=== PATIENT | female | born 1955 | race Caucasian/White ===

== ENCOUNTER → 2018-05-17 11:06 | Outpatient (CLI) | payer OTHER, MEDICAID, SELFPAY ==
--- NOTE | 2018-05-17 | DI.CT.S_ITS ---
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 5 mm coronal and sagittal reformats were performed, with additional 7 mm coronal MIP reformats through the lungs. For radiation dose reduction, the following was used: automated exposure control, adjustment of mA and/or kV according to patient size. COMPARISON: [facility], CT, CHEST/ABD/PEL WITH CONTRAST, 02/15/2013, 9:20. FINDINGS: Image quality: Excellent. CHEST: Lungs and pleura: No acute air space opacities. No pleural effusions or pneumothorax. Central and peripheral airways are patent and normal in caliber. Mediastinum: Heart size is normal. No pericardial effusion. No mediastinal or hilar adenopathy by size criteria. Thoracic aorta and central pulmonary arteries are normal in size. Esophagus is normal in caliber. No hiatal hernia. Chest wall: No axillary or supraclavicular adenopathy by size criteria. Thyroid gland appears normal except for a punctate calcification at the left thyroid lobe (series 2 image 11) without associated identifiable mass.. ABDOMEN: Solid organs: Liver is normal in size and enhancement. Gallbladder is absent, and the pattern of surgical clips at the gallbladder fossa and the pancreatic head area immediately adjacent is unchanged from 02/15/13. Biliary system is nondilated. Pancreas enhances normally. Spleen is normal in size and enhancement. No adrenal nodules. Kidneys are normal in size and enhancement, without hydronephrosis. Peritoneum and bowel: Bowel loops demonstrate normal wall thickness and caliber. No free fluid or air. Nodes and vessels: No retroperitoneal or mesenteric adenopathy by size criteria. Aorta and inferior vena cava are normal in caliber. Bones: No suspicious bony lesions. No vertebral body compression fractures. There is a mild convex leftward scoliosis centered at the L1 level of the lumbosacral spine. No underlying epidural or paravertebral mass is found. Miscellaneous: No ventral hernias. IMPRESSION: Stable postsurgical changes of cholecystectomy and presumed additional surgical procedure at the pancreatic head area, with reference to the pattern of surgical clips 02/15/[address] scanning from that time (no change). No evidence of recurrent mass lesion at the pancreatic head area, no pancreatic or biliary dilatation is found. Through the abdomen and pelvis visualized no adenopathy is seen. Through the spine visualized there is no evidence of metastatic disease. Dictated by: Edvin Rosenberg M.D. on 05/17/2018 at 12:50 Approved by: Edvin Rosenberg M.D. on 05/17/2018 at 13:11
--- NOTE | 2018-05-17 | DI.MRI.S_ITS ---
PROCEDURE: MR HEAD/BRAIN WO/W CON INDICATIONS: A 63 year-old woman with history of carcinoma of ampulla Vater and non-Hodgkin's lymphoma. The patient presents with upper and lower extremity numbness. TECHNIQUE: Noncontrast axial T1 spin echo, axial T2 fast spin echo, sagittal and axial FLAIR, coronal T2 fast spin echo, axial gradient echo, axial diffusion and ADC through the brain. After the administration of contrast, axial and coronal T1 spin echo with fat saturation through the brain. COMPARISON: [facility], CT, ABDOMEN/PELVIS WITH CONTRAST, 06/14/2011, 14:39. [facility], MR, BRAIN WITH AND WITHOUT CONTRAS, 05/20/2008, 16:11. FINDINGS: Image quality: Excellent. CSF spaces: Basal cisterns are patent. No extra-axial fluid collections. Ventricles are normal in size and shape. Brain: No midline shift. No intracranial bleeds or masses. No abnormal intracranial enhancement. There is mild cerebral volume loss for age. There are a few foci of T2 hyperintensity in the periventricular white matter chronic small vessel ischemic change. The brainstem appears normal. Diffusion-weighted images demonstrate no acute ischemic insults. No chronic ischemic insults. Normal intravascular flow voids are present. Skull and face: Calvarial marrow is normal in signal. Orbits appear normal. Sinuses: Sinuses and mastoids appear clear. IMPRESSION: 1. No acute intracranial abnormalities. No evidence for metastatic disease. 2. Mild cerebral volume loss. 3. A few foci of nonspecific T2 hyperintensity in the periventricular and subcortical matter, most likely secondary to chronic microvascular ischemic change. Dictated by: Devan Zee M.D. on 05/17/2018 at 14:55 Approved by: Devan Zee M.D. on 05/17/2018 at 15:07
== END ==
PROVIDERS: PCP Internal Medicine; Visit Provider Internal Medicine
DX: C24.1 Malignant neoplasm of ampulla of Vater (principal); C85.90 Non-Hodgkin lymphoma, unspecified, unspecified site; R20.0 Anesthesia of skin; Z90.49 Acquired absence of other specified parts of digestive tract
CPT/HCPCS: 70553; 71260; 74160; A9579; Q9967

== ENCOUNTER → 2018-06-18 16:53 | Outpatient (CLI) | payer OTHER, MEDICAID, SELFPAY ==
--- NOTE | 2018-06-18 16:55 | DI.MRI.S_ITS ---
PROCEDURE: MR THORACIC SPINE WO CON INDICATIONS: LOW BACK PAIN TECHNIQUE: Noncontrast sagittal T1 spine echo and T2 fast spin echo, sagittal STIR, axial T1 and T2 fast spin echo through the thoracic spine. COMPARISON: None. FINDINGS: Image quality: Limited by patient motion artifact. Alignment and Curvature: There is normal bony alignment of the thoracic spine. Bone Marrow: Mild reactive endplate changes noted adjacent to the T7-T8, T8-T9 and T9-T10 discs. Benign, intraosseous hemangiomas noted in the T8 and T10 vertebral bodies. No acute vertebral body compression fractures. Spinal Cord: Visualized spinal cord is normal in size and signal. Paraspinous Soft Tissues: No paravertebral masses. Miscellaneous: Loss of signal noted in the T4 and T5, T5-T6, T6-T7, T7-T8, T8-T9, T9-T10 and T11-T12 discs. Slight loss of disc height noted in the T7-T8, T8-T9, T9-T10 and T11-T12 disc. Small central T7-T8 disc protrusion noted. Mild, diffuse T5 T6, T6-T7, TE 8-T9 and T11-T12 disc bulge. No central stenosis. No neural foraminal narrowing. No neural impingement. IMPRESSION: 1. Mild to moderate multilevel degenerative disc disease. 2. No central stenosis. 3. No neural foraminal narrowing. 4. No neural impingement. Dictated by: Marquita Solis MD, PhD on 06/19/2018 at 9:56 Approved by: Marquita Solis MD, PhD on 06/19/2018 at 10:19
--- NOTE | 2018-06-18 16:55 | DI.MRI.S_ITS ---
PROCEDURE: MR CERVICAL SPINE WO CON INDICATIONS: LOW BACK PAIN TECHNIQUE: Noncontrast sagittal T1 spin echo and T2 fast spin echo, sagittal STIR, foraminal oblique sagittal T2 fast spin echo, and axial gradient echo or T2 fast spin echo through the cervical spine. COMPARISON: [facility], CT, C-SPINE WITHOUT CONTRAST, 02/28/2010, 16:45. FINDINGS: Image quality: Excellent. Alignment and Curvature: There is mild L3-L4, trace L4-L5 and trace C7-T1 anterolisthesis secondary to facet hypertrophy. There is straightening normal apical spine curvature. Bone Marrow: Reactive endplate change is noted adjacent to the C3-C4, C5-C6 and C6-C7 discs. Spinal Cord: Visualized spinal cord has normal size. Slightly increased T2 signal noted in the cervical spinal cord the level of the C3-C4 disc compatible with cord edema. No cerebellar tonsillar herniation. Paraspinous Soft Tissues: No paravertebral masses. Prevertebral soft tissues are normal in thickness. C2-C3: Loss of the signal. Mild diffuse disc bulge. Moderate right facet hypertrophy. Moderate right uncovertebral joint hypertrophy. Mild narrowing of the central canal. Severe right neural foraminal narrowing with flattening deformity of the exiting right C3 nerve root. Left neural foramen is fully patent. C3-C4: Loss of disc signal. Moderate, diffuse disc bulge. Moderate bilateral facet hypertrophy. Moderate right and mild left uncovertebral joint hypertrophy. Mild ligamentum flavum hypertrophy. Severe central stenosis with flattening deformity of the cervical spinal cord. Severe bilateral neural foraminal narrowing with flattening deformity exiting C4 nerve roots. C4-C5: Loss of disc signal and slight loss of disc height. Mild, diffuse disc bulge. Moderate bilateral facet hypertrophy. Mild bilateral uncovertebral joint hypertrophy. Mild narrowing of the central canal. Moderate bilateral neural foraminal narrowing. No neural impingement. C5-C6: Loss of disc signal and height. Moderate, diffuse disc bulge. Mild bilateral facet hypertrophy. Moderate bilateral uncovertebral joint hypertrophy. Moderate narrowing of the central canal. Severe bilateral neural foraminal narrowing with flattening deformity of the exiting C6 nerve roots. C6-C7: Loss of disc signal and height. Moderate, diffuse disc bulge. Mild bilateral facet hypertrophy. Mild bilateral uncovertebral joint hypertrophy. Moderate narrowing of the central canal. Moderate bilateral neural foraminal narrowing. No neural impingement. C7-T1: Loss of disc signal. Mild, diffuse disc bulge. Mild bilateral facet hypertrophy. No central stenosis. No neural foraminal narrowing. No neural impingement. IMPRESSION: 1. Multilevel degenerative disc disease. 2. Multilevel facet arthropathy and uncovertebral joint hypertrophy. 3. Severe C3-C4 central canal stenosis with marked flattened deformity of the cervical spinal cord and associated mild spinal cord edema. 4. Moderate C5-C6 and C6-C7 central canal narrowing. Mild C2-C3 and C4-C5 central canal narrowing. 5. Severe bilateral C3-C4 and C5-C6 neural foraminal narrowing. Severe right C2-C3 neural foraminal narrowing. Moderate bilateral C4-C5 and C6-C7 neural foraminal narrowing. 6. Flattened deformity of the exiting right C2 nerve root, the exiting bilateral C4 nerve roots and the exiting bilateral C6 nerve root secondary to neural foraminal narrowing. Dictated by: Marquita Solis MD, PhD on 06/19/2018 at 9:27 Approved by: Marquita Solis MD, PhD on 06/19/2018 at 9:51
== END ==
PROVIDERS: PCP Internal Medicine; Visit Provider Internal Medicine
DX: M50.31 Other cervical disc degeneration, high cervical region (principal); M51.34 Other intervertebral disc degeneration, thoracic region; M47.812 Spondylosis without myelopathy or radiculopathy, cervical region; M54.5 Low back pain; M48.02 Spinal stenosis, cervical region
CPT/HCPCS: 72141; 72146

== ENCOUNTER → 2020-06-22 20:37 | Outpatient (ROUT) | payer SELFPAY ==
[2020-06-22 21:21] LABS: Add Manual Diff / Slide Review NO; Basophils Absolute Auto 0 /uL (0-100); Basophils Percent Auto 0.4 % (0-2); Eosinophils Absolute Auto 100 /uL (0-450); Eosinophils Percent Auto 1.6 % (2-4); Hematocrit 43.9 % (36-46); Hemoglobin 14.8 g/dL (12.0-16.0); Lymphocytes Absolute Auto 1400 /uL (1100-4500); Lymphocytes Percent Auto 20.3 % (25-40); Mean Corpuscular HGB Conc 33.8 % (30-36); Mean Corpuscular Hemoglobin 31.4 PG (26-34); Monocytes Absolute Auto 300 /uL (0-900); Monocytes Percent Auto 5.2 % (3-14); Neutrophils Absolute Auto 4800 /uL (1500-7000); Neutrophils Percent Auto 72.5 % (50-75); Platelet Count 220 X10^3/uL (150-400); Red Blood Cell Count 4.72 X10^6/uL (4.0-5.2); Red Cell Distribution Width 14.4 % (11.6-14.8); White Blood Cell Count 6.7 X10^3/uL (4.5-11.0)
[2020-06-22 22:06] LABS: Alanine Aminotransferase 38 IU/L (<35); Albumin 4.4 g/dL (3.5-5.0); Albumin Globulin Ratio 1.6 (1.0-2.8); Alkaline Phosphatase 185 U/L (38-126); Aspartate Aminotransferase 63 IU/L (14-36); Blood Urea Nitrogen 13 mg/dL (7-17); Calcium 9.6 mg/dL (8.4-10.2); Carbon Dioxide 27 mmol/L (22-32); Chloride 105 mmol/L (98-107); Cholesterol 168 mg/dL (140-199); Estimated Glomerular Filt Rate > 60.0 mL/min (>60); Globulin 2.8 g/dL (1.7-4.1); Glucose 129 mg/dL (80-110); HDL Cholesterol 78 mg/dL (40-60); HEMOLYSIS < 15 (0-50); LDL Cholesterol Calculated 68 mg/dL (<100); Potassium 4.1 mmol/L (3.4-5.1); Sodium 139 mmol/L (137-145); Total Protein 7.2 g/dL (6.3-8.2); Triglycerides 110 mg/dL (35-150)
[2020-06-22 23:45] LABS: Lactate Dehydrogenase 529 U/L (313-618)
[2020-06-25 09:45] LABS: Immunoglobulin A, Serum 47 mg/dL (87-352); Immunoglobulin G,Serum 899 mg/dL (586-1602); Immunoglobulin M, Serum 27 mg/dL (26-217)
[2020-07-07 15:43] LABS: IGA 47; IGG 899
[2020-07-07 15:44] LABS: IGM 27
== END ==
PROVIDERS: PCP Internal Medicine; Visit Provider Internal Medicine
DX: C24.1 Malignant neoplasm of ampulla of Vater (principal); D47.2 Monoclonal gammopathy
CPT/HCPCS: 80053; 80061; 82784; 83615; 84155; 85025; 86334; 86335

== ENCOUNTER → 2022-03-31 09:22 | Outpatient (CLI) | payer MEDICARE, SELFPAY ==
[2022-03-31 11:30] LABS: Add Manual Diff / Slide Review NO; Basophils Absolute Auto 0 /uL (0-100); Basophils Percent Auto 0.4 % (0-2); Eosinophils Absolute Auto 100 /uL (0-450); Eosinophils Percent Auto 1.8 % (2-4); Hematocrit 44.9 % (36-46); Hemoglobin 15.4 g/dL (12.0-16.0); Lymphocytes Absolute Auto 1600 /uL (1100-4500); Lymphocytes Percent Auto 24.3 % (25-40); Mean Corpuscular HGB Conc 34.3 % (30-36); Mean Corpuscular Hemoglobin 33.7 PG (26-34); Mean Corpuscular Volume 98.4 fL (80-100); Monocytes Absolute Auto 400 /uL (0-900); Monocytes Percent Auto 6.6 % (3-14); Neutrophils Absolute Auto 4400 /uL (1500-7000); Neutrophils Percent Auto 66.9 % (50-75); Platelet Count 297 X10^3/uL (150-400); Red Blood Cell Count 4.57 X10^6/uL (4.0-5.2); Red Cell Distribution Width 13.3 % (11.6-14.8); White Blood Cell Count 6.5 X10^3/uL (4.5-11.0)
[2022-03-31 12:51] LABS: Alanine Aminotransferase 51 IU/L (<35); Albumin 4.5 g/dL (3.5-5.0); Albumin Globulin Ratio 1.5 (1.0-2.8); Alkaline Phosphatase 144 U/L (38-126); Aspartate Aminotransferase 53 IU/L (14-36); BUN Creatinine Ratio 15.1 (6-22); Bilirubin Total 1.1 mg/dL (0.2-1.3); Blood Urea Nitrogen 11 mg/dL (7-17); Calcium 9.7 mg/dL (8.4-10.2); Carbon Dioxide 25 mmol/L (22-32); Chloride 104 mmol/L (98-107); Cholesterol 169 mg/dL (140-199); Estimated Glomerular Filt Rate > 60 mL/min (>60); Glucose 111 mg/dL (80-110); HDL Cholesterol 57 mg/dL (40-60); HEMOLYSIS < 15 (0-50); LDL Cholesterol Calculated 92 mg/dL (<100); Lactate Dehydrogenase 408 U/L (313-618); Sodium 138 mmol/L (137-145); Total Protein 7.5 g/dL (6.3-8.2); Triglycerides 102 mg/dL (35-150)
[2022-03-31 13:18] LABS: Thyroid Stimulating Hormone 1.24 uIU/mL (0.47-4.68)
== END ==
PROVIDERS: PCP Internal Medicine; Referring Provider Internal Medicine; Visit Provider Internal Medicine
DX: C85.90 Non-Hodgkin lymphoma, unspecified, unspecified site (principal); E78.2 Mixed hyperlipidemia
CPT/HCPCS: 36415; 80053; 80061; 83615; 84443; 85025

== ENCOUNTER → 2022-04-13 14:12 | Outpatient (CLI) | payer MEDICARE, SELFPAY ==
[2022-04-15 14:16] LABS: Albumin 3.8 g/dL (2.9-4.4); Alpha-1-Globulin 0.2 g/dL (0.0-0.4); Alpha-2-Globulin 0.7 g/dL (0.4-1.0); Gamma Globulin 1.1 g/dL (0.4-1.8); Globulin Total 2.9 g/dL (2.2-3.9); Protein, Total 6.7 g/dL (6.0-8.5)
== END ==
PROVIDERS: PCP Internal Medicine; Referring Provider Internal Medicine; Visit Provider Internal Medicine
DX: D47.2 Monoclonal gammopathy (principal)
CPT/HCPCS: 36415; 84155; 84165; 86335

== ENCOUNTER → 2022-08-04 14:00 | Outpatient (CLI) | payer MEDICARE, SELFPAY ==
--- NOTE | 2022-08-04 | DI.MG.S_ITS ---
BILATERAL DIGITAL SCREENING MAMMOGRAM 3D/2D WITH CAD: 08/04/2022 CLINICAL: Routine screening. Family history of breast cancer. Comparison is made to exams dated: 01/02/2019 mammogram, 10/06/2017 mammogram, 06/23/2014 mammogram, and 08/11/2016 mammogram - [facility]. Both breasts are heterogeneously dense, which may obscure small masses (category c / 51-75% glandular tissue). Current study was also evaluated with a Computer Aided Detection (CAD) system. There is a focal asymmetry in the left breast at 2 o'clock middle depth. No other significant masses, calcifications, or other findings are seen in either breast. IMPRESSION: INCOMPLETE: NEEDS ADDITIONAL IMAGING EVALUATION The focal asymmetry in the left breast is indeterminate. Additional views with possible ultrasound are recommended. Based on the Tyrer Cuzick model (a risk assessment model) the patient's lifetime risk is 13.0% and her 10 year risk is 7.3%. According to the ACR, ACS, and NCCN guidelines, an annual breast MRI exam along with mammogram is recommended if the patient's lifetime risk is 20% or greater. This exam was interpreted at Station ID: [id number]. NOTE: For mammograms, a report in lay terms will be sent to the patient. Approximately 15% of breast malignancies will not be visualized mammographically. In the management of a palpable breast mass, a negative mammogram must not discourage biopsy of a clinically suspicious lesion. Electronically Signed By: Timothy Farr M.D. [facility] [place]/:08/04/2022 17:58:50 letter sent: Additional Imaging Needed ACR BI-RADS Category 0: Incomplete [id number]
== END ==
PROVIDERS: PCP Internal Medicine; Referring Provider Internal Medicine; Visit Provider Internal Medicine
DX: Z13.820 Encounter for screening for osteoporosis (principal); Z12.31 Encounter for screening mammogram for malignant neoplasm of breast; Z80.3 Family history of malignant neoplasm of breast; Z78.0 Asymptomatic menopausal state; Z90.710 Acquired absence of both cervix and uterus
CPT/HCPCS: 77063; 77067; 77080

== ENCOUNTER → 2022-09-06 11:38 | Outpatient (CLI) | payer MEDICARE, SELFPAY ==
--- NOTE | 2022-09-06 11:42 | DI.MG.S_ITS ---
UNILATERAL LEFT DIGITAL DIAGNOSTIC MAMMOGRAM 3D/2D WITH ADDITIONAL VIEWS: 09/06/2022 CLINICAL: Additional evaluation requested from prior study. Comparison is made to exams dated: 08/04/2022 mammogram - [facility], 01/02/2019 mammogram, and 10/06/2017 mammogram - [facility]. The left breast is heterogeneously dense, which may obscure small masses (category c / 51-75% glandular tissue). The focal asymmetry in the left breast at 2 o'clock middle depth is no longer seen. No other significant masses or calcifications are seen in the breast. IMPRESSION: NEGATIVE There is no mammographic evidence of malignancy. Return to annual mammogram screening schedule is recommended. Based on the Tyrer Cuzick model (a risk assessment model) the patient's lifetime risk is 13.0% and her 10 year risk is 7.3%. According to the ACR, ACS, and NCCN guidelines, an annual breast MRI exam along with mammogram is recommended if the patient's lifetime risk is 20% or greater. This exam was interpreted at Station ID: [id number]. NOTE: For mammograms, a report in lay terms will be sent to the patient. Approximately 15% of breast malignancies will not be visualized mammographically. In the management of a palpable breast mass, a negative mammogram must not discourage biopsy of a clinically suspicious lesion. Electronically Signed By: Domingo gomez/kizzy:09/06/2022 12:20:42 letter sent: Normal Exam ACR BI-RADS Category 1: Negative [id number]
== END ==
PROVIDERS: PCP Internal Medicine; Referring Provider Internal Medicine; Visit Provider Internal Medicine
DX: R92.8 Other abnormal and inconclusive findings on diagnostic imaging of breast (principal)
CPT/HCPCS: 77065; G0279

== ENCOUNTER → 2022-11-03 11:50 | Outpatient (CLI) | payer MEDICARE, SELFPAY ==
[2022-11-03 12:31] LABS: Hematocrit 46.3 % (36-46); Hemoglobin 15.4 g/dL (12.0-16.0); Mean Corpuscular HGB Conc 33.2 % (30-36); Mean Corpuscular Hemoglobin 31.9 PG (26-34); Platelet Count 219 X10^3/uL (150-400); Red Blood Cell Count 4.82 X10^6/uL (4.0-5.2); Red Cell Distribution Width 15.2 % (11.6-14.8); White Blood Cell Count 6.3 X10^3/uL (4.5-11.0)
[2022-11-03 12:52] LABS: Alanine Aminotransferase 130 IU/L (<35); Albumin 4.7 g/dL (3.5-5.0); Albumin Globulin Ratio 1.3 (1.0-2.8); Alkaline Phosphatase 273 U/L (38-126); Aspartate Aminotransferase 156 IU/L (14-36); BUN Creatinine Ratio 23.8 (6-22); Bilirubin Total 1.6 mg/dL (0.2-1.3); Blood Urea Nitrogen 15 mg/dL (7-17); Calcium 9.7 mg/dL (8.4-10.2); Carbon Dioxide 27 mmol/L (22-32); Chloride 102 mmol/L (98-107); Estimated Glomerular Filt Rate > 60 mL/min (>60); Globulin 3.6 g/dL (1.7-4.1); Glucose 128 mg/dL (80-110); HEMOLYSIS 25 (0-50); Potassium 3.9 mmol/L (3.4-5.1); Sodium 140 mmol/L (137-145); Total Protein 8.3 g/dL (6.3-8.2)
[2022-11-03 13:33] LABS: TSH w/ Reflex to FT4 1.67 uIU/mL (0.47-4.68)
== END ==
PROVIDERS: PCP Internal Medicine; Referring Provider Internal Medicine; Visit Provider Internal Medicine
DX: E78.2 Mixed hyperlipidemia (principal); I10 Essential (primary) hypertension; K75.81 Nonalcoholic steatohepatitis (NASH)
CPT/HCPCS: 36415; 80053; 84443; 85027

== ENCOUNTER → 2022-11-16 08:01 | Outpatient (CLI) | payer MEDICARE, SELFPAY ==
--- NOTE | 2022-11-16 08:03 | DI.US.S_ITS ---
PROCEDURE: US ABDOMEN LIMITED INDICATIONS: Nonalcoholic steatohepatitis (GARCIA) TECHNIQUE: Real-time focused scanning was performed of the abdomen, with image documentation. COMPARISON: None. FINDINGS: Increased hepatic echogenicity. The liver measures 15 centimeters. Gallbladder is absent. The CBD measures 4 millimeters. Pancreas is within normal limits, where visualized. IMPRESSION: Increased hepatic echogenicity compatible with reported steatohepatitis. The gallbladder is absent Dictated by: Vince Lockhart M.D. on 11/16/2022 at 9:33 Approved by: Vince Lockhart M.D. on 11/16/2022 at 9:34
[2022-11-16 10:57] LABS: Alanine Aminotransferase 114 IU/L (<35); Albumin 4.7 g/dL (3.5-5.0); Albumin Globulin Ratio 1.5 (1.0-2.8); Alkaline Phosphatase 224 U/L (38-126); Aspartate Aminotransferase 103 IU/L (14-36); BUN Creatinine Ratio 19.8 (6-22); Bilirubin Total 1.6 mg/dL (0.2-1.3); Blood Urea Nitrogen 16 mg/dL (7-17); Calcium 9.7 mg/dL (8.4-10.2); Carbon Dioxide 32 mmol/L (22-32); Chloride 94 mmol/L (98-107); Estimated Glomerular Filt Rate > 60 mL/min (>60); Globulin 3.2 g/dL (1.7-4.1); Glucose 133 mg/dL (80-110); HEMOLYSIS < 15 (0-50); Lactate Dehydrogenase 178 U/L (120-246); Potassium 4.1 mmol/L (3.4-5.1); Sodium 138 mmol/L (137-145); Total Protein 7.9 g/dL (6.3-8.2)
[2022-11-17 07:47] LABS: HBsAg Screen Negative (Negative); Hepatitis A Antibody IgM Negative (Negative); Hepatitis B Core Antibody IgM Negative (Negative); Hepatitis C Antibody Non Reactive (Non Reactive)
[2022-11-19 18:07] LABS: ANA Screen, IFA Negative (.)
== END ==
PROVIDERS: PCP Internal Medicine; Referring Provider Internal Medicine; Visit Provider Internal Medicine
DX: K75.81 Nonalcoholic steatohepatitis (NASH) (principal); R79.89 Other specified abnormal findings of blood chemistry; Z85.79 Personal history of other malignant neoplasms of lymphoid, hematopoietic and related tissues; Z90.49 Acquired absence of other specified parts of digestive tract
CPT/HCPCS: 36415; 76705; 80053; 80074; 83615; 86038

== ENCOUNTER → 2022-12-15 12:13 | Outpatient (CLI) | payer MEDICARE, SELFPAY ==
[2022-12-15 13:30] LABS: Alanine Aminotransferase 144 IU/L (<35); Albumin 4.9 g/dL (3.5-5.0); Albumin Globulin Ratio 1.6 (1.0-2.8); Alkaline Phosphatase 231 U/L (38-126); Aspartate Aminotransferase 160 IU/L (14-36); Bilirubin Total 1.8 mg/dL (0.2-1.3); Blood Urea Nitrogen 18 mg/dL (7-17); Carbon Dioxide 26 mmol/L (22-32); Chloride 100 mmol/L (98-107); Estimated Glomerular Filt Rate > 60 mL/min (>60); Globulin 3.1 g/dL (1.7-4.1); Glucose 135 mg/dL (80-110); HEMOLYSIS < 15 (0-50); Potassium 4.3 mmol/L (3.4-5.1); Sodium 136 mmol/L (137-145)
[2022-12-16 06:10] LABS: Labcorp Hemoglobin (Hb) A1c 5.7 % (4.8-5.6)
== END ==
PROVIDERS: PCP Internal Medicine; Referring Provider Internal Medicine; Visit Provider Internal Medicine
DX: I10 Essential (primary) hypertension (principal); R79.89 Other specified abnormal findings of blood chemistry; R73.01 Impaired fasting glucose
CPT/HCPCS: 36415; 80053; 83036

== ENCOUNTER → 2023-03-22 16:00 | Outpatient (CLI) | payer MEDICARE, SELFPAY ==
[2023-03-22 17:41] LABS: Alanine Aminotransferase 46 IU/L (<35); Albumin 4.5 g/dL (3.5-5.0); Albumin Globulin Ratio 1.4 (1.0-2.8); Alkaline Phosphatase 174 U/L (38-126); Aspartate Aminotransferase 55 IU/L (14-36); BUN Creatinine Ratio 10.2 (6-22); Blood Urea Nitrogen 10 mg/dL (7-17); Calcium 9.3 mg/dL (8.4-10.2); Carbon Dioxide 28 mmol/L (22-32); Chloride 97 mmol/L (98-107); Cholesterol 162 mg/dL (140-199); Estimated Glomerular Filt Rate > 60 mL/min (>60); Globulin 3.2 g/dL (1.7-4.1); Glucose 104 mg/dL (80-110); HDL Cholesterol 52 mg/dL (40-60); HEMOLYSIS < 15 (0-50); LDL Cholesterol Calculated 85 mg/dL (<100); Potassium 3.6 mmol/L (3.4-5.1); Sodium 136 mmol/L (137-145); Total Protein 7.7 g/dL (6.3-8.2); Triglycerides 126 mg/dL (35-150)
[2023-03-23 02:57] LABS: Labcorp Hemoglobin (Hb) A1c 5.2 % (4.8-5.6)
[2023-03-27 18:04] LABS: Albumin 3.7 g/dL (2.9-4.4); Alpha-1-Globulin 0.3 g/dL (0.0-0.4); Alpha-2-Globulin 0.7 g/dL (0.4-1.0); Gamma Globulin 1.3 g/dL (0.4-1.8); Globulin Total 3.2 g/dL (2.2-3.9); Protein, Total 6.9 g/dL (6.0-8.5)
== END ==
PROVIDERS: PCP Internal Medicine; Referring Provider Internal Medicine; Visit Provider Internal Medicine
DX: R79.89 Other specified abnormal findings of blood chemistry; D47.2 Monoclonal gammopathy; K75.81 Nonalcoholic steatohepatitis (NASH); R73.01 Impaired fasting glucose
CPT/HCPCS: 36415; 80053; 80061; 83036; 84155; 84156; 84165; 84166

== ENCOUNTER → 2023-07-12 14:32 | Outpatient (CLI) | payer MEDICARE, SELFPAY ==
[2023-07-12 14:58] LABS: Appearance Urine UA CLEAR; Bilirubin Urine UA NEGATIVE (NEGATIVE); Color Urine UA YELLOW; Glucose Urine UA NEGATIVE (Negative); Ketones Urine UA TRACE (NEGATIVE); Leukocyte Esterase Urine UA TRACE (NEGATIVE); Nitrite Urine UA NEGATIVE (Negative); Occult Blood Urine UA 1+ (Negative); Protein Urine UA NEGATIVE (Negative); Specific Gravity Urine UA 1.025 (1.000-1.035)
[2023-07-12 15:05] LABS: Hematocrit 43.2 % (36-46); Hemoglobin 15.1 g/dL (12.0-16.0); Mean Corpuscular HGB Conc 34.9 % (30-36); Mean Corpuscular Hemoglobin 35.8 PG (26-34); Mean Corpuscular Volume 102.4 fL (80-100); Platelet Count 269 X10^3/uL (150-400); Red Blood Cell Count 4.21 X10^6/uL (4.0-5.2); Red Cell Distribution Width 16.1 % (11.6-14.8); White Blood Cell Count 8.2 X10^3/uL (4.5-11.0)
[2023-07-12 15:09] LABS: Bacteria Urine Occasional (0-1); RBC Urine 0-1/HPF (0-5/HPF); Squamous Epithelial Cell Urine 0-1 /HPF (0-5/HPF); WBC Urine 1-5/HPF (0-5/HPF)
[2023-07-12 15:10] LABS: Culture Indicated Urine Cult Not Indicated
[2023-07-12 15:12] LABS: Hemoglobin A1C% w Est Avg Glu 5.3 % (4.0-6.0)
[2023-07-12 15:17] LABS: Alanine Aminotransferase 87 IU/L (<35); Albumin 4.6 g/dL (3.5-5.0); Albumin Globulin Ratio 1.5 (1.0-2.8); Alkaline Phosphatase 149 U/L (38-126); Aspartate Aminotransferase 82 IU/L (14-36); BUN Creatinine Ratio 21.1 (6-22); Bilirubin Total 1.4 mg/dL (0.2-1.3); Blood Urea Nitrogen 16 mg/dL (7-17); Calcium 10.1 mg/dL (8.4-10.2); Carbon Dioxide 27 mmol/L (22-32); Chloride 101 mmol/L (98-107); Cholesterol 183 mg/dL (140-199); Estimated Glomerular Filt Rate > 60 mL/min (>60); Globulin 3.1 g/dL (1.7-4.1); Glucose 104 mg/dL (80-110); HDL Cholesterol 90 mg/dL (40-60); HEMOLYSIS < 15 (0-50); LDL Cholesterol Calculated 65 mg/dL (<100); Potassium 4.1 mmol/L (3.4-5.1); Sodium 138 mmol/L (137-145); Total Protein 7.7 g/dL (6.3-8.2); Triglycerides 140 mg/dL (35-150)
== END ==
PROVIDERS: PCP Internal Medicine; Referring Provider Internal Medicine; Visit Provider Internal Medicine
DX: R73.01 Impaired fasting glucose (principal); R79.89 Other specified abnormal findings of blood chemistry; K75.81 Nonalcoholic steatohepatitis (NASH); N39.0 Urinary tract infection, site not specified
CPT/HCPCS: 36415; 80053; 80061; 81001; 83036; 85027

== ENCOUNTER → 2024-04-23 14:41 | Outpatient (CLI) | payer MEDICARE, SELFPAY ==
--- NOTE | 2024-04-23 14:42 | DI.RAD.S_ITS ---
PROCEDURE: XR CHEST 2V INDICATIONS: cough TECHNIQUE: 2 views of the chest were acquired. COMPARISON: None. FINDINGS: Surgical changes and devices: Cholecystectomy clips. Lungs and pleura: Lungs are clear. No pleural effusions or pneumothorax. Mediastinum: Mediastinal contours are normal. Heart size is normal. Bones and chest wall: No suspicious bony abnormalities. Soft tissues appear unremarkable. IMPRESSION: No acute cardiopulmonary abnormality is seen. Dictated by: Nancie Anand M.D. on 04/23/2024 at 16:59 Approved by: Nancie Anand M.D. on 04/23/2024 at 17:00
[2024-04-23 15:42] LABS: Hematocrit 43.6 % (36-46); Hemoglobin 15.2 g/dL (12.0-16.0); Mean Corpuscular HGB Conc 34.8 % (30-36); Mean Corpuscular Hemoglobin 37.9 PG (26-34); Mean Corpuscular Volume 109.1 fL (80-100); Platelet Count 264 X10^3/uL (150-400); Red Cell Distribution Width 15.5 % (11.6-14.8); White Blood Cell Count 7.6 X10^3/uL (4.5-11.0)
[2024-04-23 15:50] LABS: Hemoglobin A1C% w Est Avg Glu 5.3 % (4.0-6.0)
[2024-04-23 16:13] LABS: Erythrocyte Sedimentation Rate 21 MM/HR (0-20)
[2024-04-23 16:30] LABS: TSH w/ Reflex to FT4 2.96 uIU/mL (0.47-4.68)
[2024-04-23 18:45] LABS: Alanine Aminotransferase 135 IU/L (<35); Albumin 4.7 g/dL (3.5-5.0); Albumin Globulin Ratio 1.4 (1.0-2.8); Alkaline Phosphatase 272 U/L (38-126); Aspartate Aminotransferase 163 IU/L (14-36); Bilirubin Total 2.1 mg/dL (0.2-1.3); Blood Urea Nitrogen 24 mg/dL (7-17); C-Reactive Protein Quant 1.3 mg/dL (<1.0); Calcium 10.5 mg/dL (8.4-10.2); Carbon Dioxide 25 mmol/L (22-32); Chloride 95 mmol/L (98-107); Estimated Glomerular Filt Rate > 60 mL/min (>60); Globulin 3.4 g/dL (1.7-4.1); Glucose 131 mg/dL (80-110); HEMOLYSIS < 15 (0-50); Lactate Dehydrogenase 198 U/L (120-246); Potassium 3.9 mmol/L (3.4-5.1); Sodium 134 mmol/L (137-145); Total Protein 8.1 g/dL (6.3-8.2)
== END ==
PROVIDERS: PCP Internal Medicine; Referring Provider Internal Medicine; Visit Provider Internal Medicine
DX: R73.01 Impaired fasting glucose (principal); R05.9 Cough, unspecified; Z85.79 Personal history of other malignant neoplasms of lymphoid, hematopoietic and related tissues; D47.2 Monoclonal gammopathy
CPT/HCPCS: 36415; 71046; 80053; 83036; 83615; 84155; 84165; 84443; 85027; 85651; 86140

== ENCOUNTER → 2024-10-02 15:15 | Outpatient (CLI) | payer MEDICARE, SELFPAY ==
[2024-10-02 16:29] LABS: Hematocrit 39.8 % (36-46); Hemoglobin 13.8 g/dL (12.0-16.0); Mean Corpuscular HGB Conc 34.8 % (30-36); Mean Corpuscular Volume 106.4 fL (80-100); Platelet Count 198 X10^3/uL (150-400); Red Blood Cell Count 3.74 X10^6/uL (4.0-5.2); Red Cell Distribution Width 13.6 % (11.6-14.8); White Blood Cell Count 5.9 X10^3/uL (4.5-11.0)
[2024-10-02 16:46] LABS: Alanine Aminotransferase 102 IU/L (<35); Albumin 4.6 g/dL (3.5-5.0); Albumin Globulin Ratio 1.6 (1.0-2.8); Alkaline Phosphatase 317 U/L (38-126); Aspartate Aminotransferase 102 IU/L (14-36); BUN Creatinine Ratio 25.3 (6-22); Bilirubin Total 1.3 mg/dL (0.2-1.3); Blood Urea Nitrogen 19 mg/dL (7-17); Carbon Dioxide 24 mmol/L (22-32); Chloride 99 mmol/L (98-107); Cholesterol 205 mg/dL (140-199); Estimated Glomerular Filt Rate > 60 mL/min (>60); Globulin 2.9 g/dL (1.7-4.1); Glucose 188 mg/dL (80-110); HDL Cholesterol 89 mg/dL (40-60); HEMOLYSIS < 15 (0-50); LDL Cholesterol Calculated 94 mg/dL (<100); Sodium 133 mmol/L (137-145); Total Protein 7.5 g/dL (6.3-8.2); Triglycerides 109 mg/dL (35-150)
[2024-10-02 18:12] LABS: Hemoglobin A1C% w Est Avg Glu 6.4 % (4.0-6.0)
== END ==
PROVIDERS: PCP Internal Medicine; Referring Provider Internal Medicine; Visit Provider Internal Medicine
DX: I10 Essential (primary) hypertension (principal); R79.89 Other specified abnormal findings of blood chemistry; Z85.79 Personal history of other malignant neoplasms of lymphoid, hematopoietic and related tissues; R73.01 Impaired fasting glucose
CPT/HCPCS: 36415; 80053; 80061; 83036; 85027

== ENCOUNTER → 2024-10-09 14:06 | Outpatient (CLI) | payer MEDICARE, SELFPAY ==
--- NOTE | 2024-10-09 14:08 | DI.MG.S_ITS ---
BILATERAL DIGITAL SCREENING MAMMOGRAM 3D/2D WITH CAD: 10/09/2024 CLINICAL: Routine screening. Family history of breast cancer. Comparison is made to exams dated: 08/04/2022 mammogram - [facility], 01/02/2019 mammogram, and 10/06/2017 mammogram - [facility]. The breasts are heterogeneously dense, which may obscure small masses (category c / 51-75% glandular tissue). Current study was also evaluated with a Computer Aided Detection (CAD) system. No significant masses, calcifications, or other findings are seen in either breast. There has been no significant interval change. IMPRESSION: NEGATIVE There is no mammographic evidence of malignancy. A 1 year screening mammogram is recommended. Based on the Tyrer Cuzick model (a risk assessment model) the patient's lifetime risk is 11.7% and her 10 year risk is 7.5%. According to the ACR, ACS, and NCCN guidelines, an annual breast MRI exam along with mammogram is recommended if the patient's lifetime risk is 20% or greater. This exam was interpreted at Station ID: [id number]. NOTE: For mammograms, a report in lay terms will be sent to the patient. Approximately 15% of breast malignancies will not be visualized mammographically. In the management of a palpable breast mass, a negative mammogram must not discourage biopsy of a clinically suspicious lesion. Electronically Signed By: Yao fairbanks/kizzy:10/10/2024 08:13:12 letter sent: Normal Exam ACR BI-RADS Category 1: Negative
[2024-10-09 15:29] LABS: Glucose 204 mg/dL (80-110)
[2024-10-09 17:46] LABS: Appearance Urine UA CLEAR; Bilirubin Urine UA 2+ (NEGATIVE); Color Urine UA YELLOW; Glucose Urine UA TRACE g/dL (Negative); Ketones Urine UA TRACE (NEGATIVE); Leukocyte Esterase Urine UA NEGATIVE (NEGATIVE); Nitrite Urine UA POSITIVE (Negative); Occult Blood Urine UA 2+ (Negative); Protein Urine UA 1+ (Negative); Specific Gravity Urine UA 1.025 (1.000-1.035)
[2024-10-09 18:36] LABS: Bacteria Urine Moderate (10-30); RBC Urine None Seen (0-5/HPF); Squamous Epithelial Cell Urine 1-5 /HPF (0-5/HPF); Urine Volume Low Vol <10mL (spun); WBC Urine 1-5/HPF (0-5/HPF)
[2024-10-09 18:40] LABS: Ictotest Urine Positive (Negative)
[2024-10-09 18:42] LABS: Culture Indicated Urine Specimen Cultured
== END ==
LOC: MAMMO 14:07
PROVIDERS: PCP Internal Medicine; Referring Provider Internal Medicine; Visit Provider Internal Medicine
DX: Z12.31 Encounter for screening mammogram for malignant neoplasm of breast (principal); R92.333 Mammographic heterogeneous density, bilateral breasts; Z80.3 Family history of malignant neoplasm of breast; R31.9 Hematuria, unspecified; R73.01 Impaired fasting glucose; R39.89 Other symptoms and signs involving the genitourinary system
CPT/HCPCS: 36415; 77063; 77067; 81001; 82947; 87086

== ENCOUNTER → 2024-10-30 11:42 | Outpatient (CLI) | payer MEDICARE, SELFPAY ==
[2024-10-30 12:18] LABS: Appearance Urine UA CLEAR; Bilirubin Urine UA 1+ (NEGATIVE); Color Urine UA YELLOW; Glucose Urine UA 2+ g/dL (Negative); Ketones Urine UA NEGATIVE (NEGATIVE); Leukocyte Esterase Urine UA NEGATIVE (NEGATIVE); Nitrite Urine UA NEGATIVE (Negative); Occult Blood Urine UA 1+ (Negative); Protein Urine UA 1+ (Negative)
[2024-10-30 12:25] LABS: Ictotest Urine Negative (Negative); Urine Volume 10mL (spun)
[2024-10-30 12:26] LABS: Bacteria Urine Many (>30); Culture Indicated Urine Specimen Cultured; Mucus Urine 2+ (Negative); RBC Urine 1-5/HPF (0-5/HPF); Squamous Epithelial Cell Urine 5-10 /HPF (0-5/HPF); WBC Urine 1-5/HPF (0-5/HPF)
== END ==
PROVIDERS: PCP Internal Medicine; Referring Provider Urology; Visit Provider Urology
DX: R31.0 Gross hematuria (principal)
CPT/HCPCS: 81001; 87086

== ENCOUNTER → 2024-11-07 12:00 | Outpatient (CLI) | payer MEDICARE, SELFPAY | PROVIDERS: PCP Internal Medicine; Visit Provider Urology | DX: R31.0 Gross hematuria (principal); R39.9 Unspecified symptoms and signs involving the genitourinary system | CPT/HCPCS: 87086 ==

== ENCOUNTER → 2024-11-15 11:45 | Outpatient (CLI) | payer MEDICARE, SELFPAY ==
--- NOTE | 2024-11-15 11:47 | DI.CT.S_ITS ---
PROCEDURE: CT IVP A/P W/WO INDICATIONS: Hematuria. Nonalcoholic steatohepatitis (GARCIA). TECHNIQUE: Optional 5 mm thick noncontrast images acquired from the diaphragm to the symphysis pubis. After the administration of intravenous contrast, 5 mm thick images acquired from the diaphragm to the symphysis pubis after a 10-minute delay. 2 mm thick coronal and sagittal reformats were then performed of the kidneys and ureters. For radiation dose reduction, the following was used: automated exposure control, adjustment of mA and/or kV according to patient size. COMPARISON: [facility], , US ABDOMEN LIMITED, 11/16/2022, 8:48. FINDINGS: Image quality: Diagnostic. Kidneys and Ureters: Both kidneys are normal in size, without hydronephrosis. There is nonobstructive nephrolithiasis at the left mid kidney where a 4 mm calculus is seen.. No perinephric fat stranding. There is normal bilateral renal enhancement. Renal calyces appear normal in morphology when filled with contrast. Opacified portions of both ureters demonstrate normal caliber Bladder: Bladder wall thickness is normal. No calcified bladder stones. OTHER: Lower chest: Unremarkable. Liver: No solid mass. Diffuse prominent fatty infiltration. Gallbladder: Prior cholecystectomy PICC Biliary ducts: No biliary dilation. Pancreas: No ductal dilation. Spleen: Size is above normal limits in craniocaudad length measuring up to 14.9 cm. Adrenal Glands: No adrenal nodules. Stomach and Bowel: Normal colonic caliber, without significant wall thickening. Peritoneum: No abnormal intraperitoneal fluid. No free air. Ventral Wall: No hernia. Abdominal Nodes: No retroperitoneal or mesenteric adenopathy by size criteria. Vessels: Aorta and inferior vena cava are normal in size. PELVIS: Pelvic Organs: Unremarkable. Pelvic Nodes: No enlarged lymph nodes. Miscellaneous: No inguinal hernias are seen. Bones: No aggressive osseous abnormality. Convex leftward scoliosis, low lumbosacral spine posterior fusion. IMPRESSION: No obstructive nephrolithiasis or filling defects within the opacified renal collecting system or ureters that would indicate presence of urothelial neoplasm. Note is made of a nonobstructive 4 mm calculus within the middle 3rd collecting system of the left kidney. Prior cholecystectomy. Fatty infiltration throughout the liver, splenomegaly. The patient carries a clinical history of non alcoholic steatohepatitis. Chronic convex leftward scoliosis with prior posterior spine fusion procedure at the low lumbosacral spine. Dictated by: Edvin Rosenberg M.D. on 11/15/2024 at 16:03 Approved by: Edvin Rosenberg M.D. on 11/15/2024 at 16:11
[2024-11-15 12:25] LABS: Estimated Glomerular Filt Rate > 60 mL/min (>60)
== END ==
PROVIDERS: PCP Internal Medicine; Referring Provider Urology; Visit Provider Urology
DX: Z01.812 Encounter for preprocedural laboratory examination (principal); K75.81 Nonalcoholic steatohepatitis (NASH); N20.0 Calculus of kidney; R31.0 Gross hematuria; M41.9 Scoliosis, unspecified; R16.1 Splenomegaly, not elsewhere classified; Z98.1 Arthrodesis status; Z90.49 Acquired absence of other specified parts of digestive tract
CPT/HCPCS: 36415; 74178; 82565; Q9967

== ENCOUNTER 2024-11-15 12:44 | Emergency (ER) | payer MEDICARE, SELFPAY ==
[2024-11-15] VITALS (9 sets, daily range): BP systolic 136–160; BP diastolic 63–85; PULSE 79–84; RESP 13–22; TEMP 36.4–36.7; O2SAT 96–98; BMI 31.3
--- NOTE | 2024-11-15 12:46 | EKG_ITS ---
[place] [id number] [place] [id number] Test Date: 2024-11-15 Pat Name: Dee Dee Rizo Department: Room: Gender: Female [employer] Tender: : 1955 Requested By: Order Number: [id number] Reading MD: Tom Multani MD Measurements Intervals [place] Rate: 82 P: 41 LA: 184 QRS: -42 QRSD: 98 T: 59 QT: 402 QTc: 469 Interpretive Statements Normal sinus rhythm Left axis deviation Incomplete right bundle branch block Minimal voltage criteria for LVH, may be normal variant ( R in aVL ) Septal infarct , age undetermined Electronically Signed On 11-15-2024 13:45:54 PDT by Tom Multani MD
--- NOTE | 2024-11-15 12:49 | DI.RAD.S_ITS ---
PROCEDURE: XR CHEST 1V INDICATIONS: chest pain TECHNIQUE: One view of the chest was acquired. COMPARISON: [facility], CR, XR CHEST 2V, 04/23/2024, 15:04. FINDINGS AND IMPRESSION: No dense airspace disease or pleural effusion on this single view study. Heart size is at the upper limit of normal, unchanged. Degenerative osseous findings. Dictated by: Vince Lockhart M.D. on 11/15/2024 at 13:22 Approved by: Vince Lockhart M.D. on 11/15/2024 at 13:23
[2024-11-15 13:10] LABS: Add Manual Diff / Slide Review NO; Basophils Absolute Auto 0 /uL (0-100); Basophils Percent Auto 1.1 % (0-2); Eosinophils Absolute Auto 0 /uL (0-450); Eosinophils Percent Auto 0.7 % (2-4); Hematocrit 39.6 % (36-46); Hemoglobin 13.7 g/dL (12.0-16.0); Lymphocytes Absolute Auto 900 /uL (1100-4500); Lymphocytes Percent Auto 21.6 % (25-40); Mean Corpuscular HGB Conc 34.6 % (30-36); Monocytes Absolute Auto 300 /uL (0-900); Neutrophils Absolute Auto 3000 /uL (1500-7000); Neutrophils Percent Auto 69.6 % (50-75); Platelet Count 190 X10^3/uL (150-400); Red Cell Distribution Width 15.4 % (11.6-14.8); White Blood Cell Count 4.3 X10^3/uL (4.5-11.0)
[2024-11-15 13:14] LABS: Prothrombin Time 11.8 SECONDS (9.4-12.5)
[2024-11-15 13:17] LABS: Alanine Aminotransferase 95 IU/L (<35); Albumin 4.5 g/dL (3.5-5.0); Albumin Globulin Ratio 1.3 (1.0-2.8); Alkaline Phosphatase 240 U/L (38-126); Aspartate Aminotransferase 159 IU/L (14-36); BUN Creatinine Ratio 18.8 (6-22); Bilirubin Total 2.1 mg/dL (0.2-1.3); Blood Urea Nitrogen 13 mg/dL (7-17); Calcium 9.6 mg/dL (8.4-10.2); Carbon Dioxide 23 mmol/L (22-32); Chloride 94 mmol/L (98-107); Creatine Kinase 37 U/L (30-135); Estimated Glomerular Filt Rate > 60 mL/min (>60); Globulin 3.4 g/dL (1.7-4.1); Glucose 255 mg/dL (80-110); Lipase 138 U/L (23-300); Magnesium 1.7 mg/dL (1.6-2.3); Potassium 3.9 mmol/L (3.4-5.1); Sodium 131 mmol/L (137-145); Total Protein 7.9 g/dL (6.3-8.2)
[2024-11-15 13:17] LABS: PTT Partial Thromboplastin Tim 33 SECONDS (25.1-36.5)
[2024-11-15 13:18] LABS: HEMOLYSIS 74 (0-50)
[2024-11-15 13:29] LABS: NT-proBNP (BNP-Adult 18+) 46 pg/mL (<125); Troponin I < 0.012 ng/mL (0.01-0.034)
--- NOTE | 2024-11-15 13:46 | DI.CT.S_ITS ---
PROCEDURE: CT HEAD/BRAIN WO CON INDICATIONS: dizzy w/ syncope but no head trauma; no focal neuro symptoms TECHNIQUE: Noncontrast 4.5 mm thick angled axial sections acquired from the foramen magnum to the vertex, with coronal and sagittal reformats. For radiation dose reduction, the following was used: automated exposure control, adjustment of mA and/or kV according to patient size. COMPARISON: None. FINDINGS: Image quality: Diagnostic CSF spaces: Basal cisterns are patent. Lateral ventricles are symmetric. Volume: Vascular calcifications. Periventricular white matter disease is commonly seen with chronic microangiopathy. Volume loss is present. These findings are moderate Brain: No intracranial hemorrhage. Mahmood-white differentiation is grossly maintained. Craniofacial structures: No significant paranasal sinus opacity. IMPRESSION: No acute intracranial abnormality If there is high concern for parenchymal pathology, consider further evaluation with MRI. Dictated by: Vince Lockhart M.D. on 11/15/2024 at 15:00 Approved by: Vince Lockhart M.D. on 11/15/2024 at 15:01
--- NOTE | 2024-11-15 13:47 | ED.GENADULT ---
HPI - General Adult General Chief complaint: Syncope Stated complaint: Rapid Response Time Seen by Provider: 11/15/24 13:03 Source: patient Mode of arrival: Wheelchair History of Present Illness HPI narrative: 69-year-old female with history of non-Hodgkin's lymphoma status post remote surgery for associated lesion near the ductal ampulla, prior biliary stenting, history of GARCIA (nonalcoholic steatohepatitis), history of recurrent syncopal episodes of unclear etiology, more recent diagnosis of hematuria for which local urologist Dr. Quispe had requested CT pyelogram, patient was here for outpatient CT pyelogram walking in the Radiology Department, when she had syncopal episode that felt very similar to her prior episodes. No associated palpitations or chest pain or shortness of breath. No shaking or seizure incontinence. No focal weakness or numbness. Glucose normal, patient was transferred here to the emergency department for further evaluation. She did not strike her head. Related Data Home Medications Medication Instructions Recorded Confirmed cholecalciferol (vitamin D3) 10 10 mcg PO DAILY 04/13/22 11/07/24 mcg (400 unit) capsule lansoprazole 15 mg capsule,delayed 15 mg PO DAILY 04/13/22 11/07/24 release Previous Rx's Medication Instructions Recorded valacyclovir 1 gram tablet 1,000 mg PO DAILY PRN Prn herpes 02/09/24 (Valtrex) breakout #30 tabs losartan 50 mg-hydrochlorothiazide 0.5 tab PO DAILY #90 tabs 06/27/24 12.5 mg tablet venlafaxine 150 mg 150 mg PO DAILY Depression #90 caps 07/22/24 capsule,extended release 24 hr ondansetron 8 mg disintegrating 8 mg PO Q8H PRN nausea and 09/23/24 tablet vomiting #30 tabs semaglutide 3 mg tablet (Rybelsus) 3 mg PO DAILY 30 days #30 tabs 10/29/24 Allergies Allergy/AdvReac Type Severity Reaction Status Date / Time Sulfa (Sulfonamide Allergy Unknown Verified 11/07/24 12:04 Antibiotics) [SULFA (SULFONAMIDE ANTIBIOTICS)] Patient History Medical History DM type 2 with diabetic dyslipidemia Abnormal LFTs Rosacea (~1998) Sleep apnea (~2009) Disease of spine (~2018) Fractures (~2009) Cervical spine disease (~2018) Rubella (~1962) Mumps (~1961) Measles (~1961) Chicken pox (~1959) Kidney stones Skin cancer, basal cell (~1989) HSV-2 (herpes simplex virus 2) infection (~1979) MGUS (monoclonal gammopathy of unknown significance) Chronic polyneuropathy Obesity (BMI 30.0-34.9) Mixed hyperlipidemia Essential hypertension GARCIA (nonalcoholic steatohepatitis) Menopausal syndrome Chronic abdominal pain Depression, recurrent (~2008) History of lymphoma (~2008) Non-Hodgkin lymphoma, unspecified, unspecified site Surgical History Anesthesia History of arthroscopic knee surgery (~2007) History of foot surgery (~2011) H/O lumbosacral spine surgery (~2018) History of back surgery (~2018) History of section (~1983) History of cholecystectomy (~1983) History of total hysterectomy with bilateral salpingo-oophorectomy (BSO) (~1999) History of bladder suspension procedure (~2009) Bile duct disease (~2011) Family History Father Cancer Hypertension Stroke Mother Cancer Grandfather History of heart disease Grandmother Cancer Grandfather Stroke Social History marital status: details: grown children, retired health care administration Smoking Status: Never smoker Smoking Status: Never smoker Exam Narrative Exam Narrative: GENERAL: Well-developed patient, in mild distress. HEAD: Atraumatic. Normocephalic. EYES: Pupils equal round and reactive. Extraocular motions intact. No scleral icterus. No injection or drainage. ENT: Nose without bleeding, purulent drainage. Throat without erythema, tonsillar hypertrophy or exudate. Airway patent. NECK: Trachea midline. Non tender CARDIOVASCULAR: Regular rate and rhythm without murmurs, gallops, or rubs. RESPIRATORY: Clear to auscultation. Breath sounds equal bilaterally. No wheezes, rales, or rhonchi. GASTROINTESTINAL: Abdomen soft, non-tender, nondistended. EXTREMITIES: No edema or joint tenderness. BACK: Nontender without deformity or crepitance. No flank tenderness. NEURO: AOx3. Motor functions grossly nonfocal SKIN: No rash or erythema of visible areas Initial Vital Signs Initial Vital Signs: Vital Signs Temperature 97.5 F L 11/15/24 12:44 Pulse Rate 83 11/15/24 12:44 Respiratory Rate 20 11/15/24 12:44 Blood Pressure 160/79 H 11/15/24 12:44 Pulse Oximetry 96 11/15/24 12:44 Oxygen Delivery Method Room Air 11/15/24 12:44 Course Orders Ordered: ED Orders 11/15/24 12:49 XR chest 1V Stat Comprehensive Metabolic Panel Stat Lipase Stat Magnesium Stat NT-proBNP (BNP-Adult 18+) Stat Troponin & CK Cardiac Panel Stat EKG-12 Lead Stat 11/15/24 12:59 Complete Blood Count AUTO DIFF Stat PTT Partial Thromboplastin Av Stat Prothrombin Time INR Stat 11/15/24 13:46 CT head/brain wo con Stat 11/15/24 15:00 EKG-12 Lead Stat 11/15/24 15:12 Trop I [Troponin I] Stat Discontinued Medications Aspirin (Aspirin 81 Mg Chew Tab) 324 mg PO NOW ONE Stop: 11/15/24 12:50 Last Admin: 11/15/24 13:46 Dose: Not Given Documented By: KW Vital Signs Vital signs: Vital Signs - 8 hr 11/15/24 12:44 11/15/24 13:30 11/15/24 14:31 Temperature 97.5 F L Pulse Rate 83 84 84 Respiratory Rate 20 15 13 Blood Pressure 160/79 H 136/63 Pulse Oximetry 96 96 97 Oxygen Delivery Method Room Air Room Air 11/15/24 15:00 11/15/24 15:13 11/15/24 15:13 Temperature Pulse Rate 79 80 Respiratory Rate 17 13 Blood Pressure 141/66 H Pulse Oximetry 97 98 Oxygen Delivery Method 11/15/24 15:30 11/15/24 15:30 11/15/24 16:00 Temperature Pulse Rate 79 Respiratory Rate 22 Blood Pressure 150/70 H 153/85 H Pulse Oximetry 96 Oxygen Delivery Method 11/15/24 16:00 11/15/24 16:17 11/15/24 16:17 Temperature Pulse Rate 83 81 Respiratory Rate 17 18 Blood Pressure 160/75 H Pulse Oximetry 96 98 Oxygen Delivery Method 11/15/24 16:35 Temperature 98.0 F Pulse Rate 81 Respiratory Rate 18 Blood Pressure 160/75 H Pulse Oximetry 98 Oxygen Delivery Method Room Air Medical Decision Making Lab Data Lab results reviewed: Yes I reviewed the patient's lab results. Lab results narrative: White blood cell count 4300, hemoglobin 13.7, platelets 190,000. Glucose 255. BUN 13 with creatinine 0.69 normal renal function noted. Sodium 131, potassium 3.9, chloride 94, serum CO2 23. Total bilirubin 2.1, alkaline phosphatase 240, AST 159, ALT 95. Lipase normal. BNP 46 normal. Troponin negative. 11/15/24 12:59 11/15/24 12:49 Labs: Lab Results 11/15/24 11/15/24 11/15/24 Range/Units 12:49 12:59 15:12 WBC 4.3 L (4.5-11.0) X10^3/uL RBC 3.70 L (4.0-5.2) X10^6/uL Hgb 13.7 (12.0-16.0) g/dL Hct 39.6 (36-46) % MCV 107.0 H (80-100) fL MCH 37.0 H (26-34) PG MCHC 34.6 (30-36) % RDW 15.4 H (11.6-14.8) % Plt Count 190 (150-400) X10^3/uL Neut % (Auto) 69.6 (50-75) % Lymph % (Auto) 21.6 L (25-40) % Norman % (Auto) 7.0 (3-14) % Eos % (Auto) 0.7 L (2-4) % Baso % (Auto) 1.1 (0-2) % Neut # (Auto) 3000 (6630-4468) /uL Lymph # (Auto) 900 L (0368-9767) /uL Norman # (Auto) 300 (0-900) /uL Eos # (Auto) 0 (0-450) /uL Baso # (Auto) 0 (0-100) /uL PT 11.8 (9.4-12.5) SECONDS INR 1.0 (0.9-1.3) APTT 33 (25.1-36.5) SECONDS Sodium 131 L (137-145) mmol/L Potassium 3.9 (3.4-5.1) mmol/L Chloride 94 L (98-107) mmol/L Carbon Dioxide 23 (22-32) mmol/L BUN 13 (7-17) mg/dL Creatinine 0.69 (0.52-1.04) mg/dL Estimated GFR > 60 (>60) mL/min BUN/Creatinine Ratio 18.8 (6-22) Glucose 255 H (80-110) mg/dL Calcium 9.6 (8.4-10.2) mg/dL Magnesium 1.7 (1.6-2.3) mg/dL Total Bilirubin 2.1 H (0.2-1.3) mg/dL AST 159 H (14-36) IU/L ALT 95 H (<35) IU/L Alkaline Phosphatase 240 H (38-126) U/L Total Creatine Kinase 37 (30-135) U/L Troponin I < 0.012 < 0.012 (0.01-0.034) ng/mL NT-Pro-B Natriuret Pep 46 (<125) pg/mL Total Protein 7.9 (6.3-8.2) g/dL Albumin 4.5 (3.5-5.0) g/dL Globulin 3.4 (1.7-4.1) g/dL Albumin/Globulin Ratio 1.3 (1.0-2.8) Lipase 138 (23-300) U/L Point of Care Testing Glucose POC 252 Point of care testing: Point of Care Testing Glucose POC 252 Imaging Data Chest x-ray: Radiologist's Impression: [address] [address] XRay Report Signed Patient: Dee Dee Rizo MR#: [id number] : 1955 Acct:[id number] Age/Sex: 69 / F Date of Service: 11/15/24 Loc: ED Accession Number: [id number] Procedure: XR chest 1V Ordering Provider: Juan Mei MD PROCEDURE: XR CHEST 1V INDICATIONS: chest pain TECHNIQUE: One view of the chest was acquired. COMPARISON: [facility], , XR CHEST 2V, 04/23/2024, 15:04. FINDINGS AND IMPRESSION: No dense airspace disease or pleural effusion on this single view study. Heart size is at the upper limit of normal, unchanged. Degenerative osseous findings. Dictated by: Vince Lockhart M.D. on 11/15/2024 at 13:22 Approved by: Vince Lockhart M.D. on 11/15/2024 at 13:23 ECG Data Attestation: I personally reviewed and interpreted this ECG as follows: Interpretation: 1246, Normal sinus rhythm with rate of 80, no obvious ST segment elevation or depression changes. HI 176, QRS 92, QTC 472. 1510, normal sinus rhythm with rate of 82, no obvious ST segment elevation or depression changes. HI 176, QRS 92, QT 472. MDM Narrative Medical decision making narrative: 69-year-old female with history of non-Hodgkin's lymphoma, GARCIA, recent hematuria awaiting CT pyelogram, was here for outpatient CT pyelogram when she had syncopal episode, history of syncopal episodes this felt similar. Quick recovery. No associated shaking. Afebrile, sirs screen negative. Quick recovery, no significant injury from any fall. Rapid response was called within the hospital, patient was transferred over here. Glucose normal. CT head ordered, labs and EKGs sent. EKG without obvious ischemic changes, no change on repeat study. Initial troponin negative and repeat troponin negative. No bradycardia or tachycardia or dysrhythmia noted on cardiac cath lab radiology technologist. CT head study no acute changes. See radiology report. CT IVP abdomen and pelvis without and with contrast, was ordered as an outpatient but performed while patient triage for syncope workup. Report located in the outpatient setting diagnostic imaging. Impressions: ?No obstructive nephrolithiasis or filling defects within the opacified renal collecting system or ureter that would indicate presence of a urothelial neoplasm. Note is made of a nonobstructive 4 mm calculus within the middle 3rd collecting system of the left kidney. Prior cholecystectomy. Fatty infiltration throughout the liver, splenomegaly. Patient carries a clinical history of nonalcoholic steatohepatitis. Chronic convex leftward scoliosis with prior posterior spine fusion procedure at the low lumbosacral spine. ? See radiology report. Copy of IV P CT abdomen and pelvis study provided to the patient. Patient feels this is typical of her previous syncopal episodes. Further follow up as outpatient with her PCP Dr. Mahmood, for further workup as indicated. We discussed consideration for telemetry monitoring, echocardiogram, cardiac stress testing, or other tests as needed as an outpatient. She will follow up per her primary care provider to discuss these evaluations. She was ambulatory in the department, felt better, wanted to go home. Home with family. Discharge Plan Departure Patient Disposition: Home Clinical Impression: Syncope and collapse, Hematuria Activity Restrictions/Additional Instructions: Ms Rizo, You have had a visit to the hospital today for outpatient CT pyelogram abdomen and pelvis imaging for workup of hematuria through your local urologist. You have history of previous passing-out episodes. While walking in the radiology department you had passing-out episode similar to your previous events. No significant injuries. You were taken to the emergency department. Your blood sugar level was not low or terribly high. Other blood tests not suggestive of any electrolyte abnormalities. EKG and serial blood tests not suggestive of heart attack at this time. We did order your CT abdomen and pelvis pyelogram, the report was located in the outpatient section. There seemed to be a nonobstructing mid kidney stone but otherwise no acute changes in the urinary system. Follow up with Urology for further workup of your hematuria symptoms. Regarding your passing-out episode, and history of recurrent passing-out episode, discuss further with your primary care provider who you believe was aware of this. Further workup as an outpatient which might include things like ambulatory cardiac monitoring, cardiac stress testing, echocardiogram ultrasound of the heart, and/or other tests as needed. You felt better and wanted to go home. A copy of your report from your CT abdomen and pelvis pyelogram was provided. Discharged home with family. Follow up with your urologist and with your primary care provider as above. Return earlier to this/nearest emergency department for any change worsening symptoms or any concerns prior. Thank you for allowing our team to take care of you today. Prescriptions: No Action valacyclovir [Valtrex] 1 gram tablet 1,000 mg PO DAILY PRN (Reason: Prn herpes breakout) Qty: 30 5RF losartan-hydrochlorothiazide 50-12.5 mg tablet 0.5 tab PO DAILY Qty: 90 3RF venlafaxine 150 mg capsule,extended release 24hr 150 mg PO DAILY Qty: 90 3RF ondansetron 8 mg tablet,disintegrating 8 mg PO Q8H PRN (Reason: nausea and vomiting) Qty: 30 5RF Rybelsus 3 mg tablet 3 mg PO DAILY 30 Days Qty: 30 0RF cholecalciferol (vitamin D3) 10 mcg (400 unit) capsule 10 mcg PO DAILY lansoprazole 15 mg capsule,delayed release(DR/EC) 15 mg PO DAILY Referrals: Dalton Mahmood MD [Primary Care Provider] - Stand Alone Forms: Patient Portal/API/Survey
--- NOTE | 2024-11-15 14:46 | PC.NURSE ---
Pt reports she was on her way to imaging for IVP (d/t chronic hematuria--followed by urology). Pt states on her way to radiology she became faint; rapid response called. Pt alert and oriented upon RN arriving. Pt states this has happened before. Pt diaphoretic and nauseous upon examination. Respirations regular and unlabored.
--- NOTE | 2024-11-15 15:00 | EKG_ITS ---
[place] [address] [place] [id number] Test Date: 2024-11-15 Pat Name: Dee Dee Rizo Department: [facility] Room: Gender: Female Summer Clerk: SHONDA : 1955 Requested By: Order Number: [id number] Reading MD: Tom Multani MD Measurements Intervals [place] Rate: 80 P: 39 CO: 176 QRS: -41 QRSD: 92 T: 40 QT: 410 QTc: 472 Interpretive Statements Normal sinus rhythm Left axis deviation Minimal voltage criteria for LVH, may be normal variant ( Burt product ) Septal infarct , age undetermined NO SIGNIFICANT CHANGE FROM PRIOR TRACING Electronically Signed On 11-17-2024 14:59:00 PDT by Tom Multani MD
[2024-11-15 15:53] LABS: Troponin I < 0.012 ng/mL (0.01-0.034)
--- NOTE | 2024-11-15 16:17 | PC.NURSE ---
Pt passed ambulation trial. Ambulated from Room 11 to bathroom near triage (approx 40-50 feet?)
== END 2024-11-15 16:36 | disposition home or self-care (01) ==
PROVIDERS: Emergency Provider Emergency Medicine; PCP Internal Medicine
DX: R55 Syncope and collapse (principal); R31.9 Hematuria, unspecified; R07.9 Chest pain, unspecified; I45.10 Unspecified right bundle-branch block; Z01.812 Encounter for preprocedural laboratory examination; R31.0 Gross hematuria; K75.81 Nonalcoholic steatohepatitis (NASH); N20.0 Calculus of kidney; M41.9 Scoliosis, unspecified; R16.1 Splenomegaly, not elsewhere classified; Z98.1 Arthrodesis status; Z90.49 Acquired absence of other specified parts of digestive tract
CPT/HCPCS: 36415; 70450; 71045; 74178; 80053; 82550; 82565; 82962; 83690; 83735; 83880; 84484; 85025; 85610; 85730; 93005; 93010; 99283; 99284; Q9967

== ENCOUNTER → 2024-12-09 14:36 | Outpatient (CLI) | payer MEDICARE, SELFPAY | PROVIDERS: PCP Internal Medicine; Referring Provider Internal Medicine; Visit Provider Internal Medicine | DX: R55 Syncope and collapse (principal) | CPT/HCPCS: 93246; 93248 ==

== ENCOUNTER 2025-02-20 14:37 | Emergency (ER) | payer MEDICARE, SELFPAY ==
[2025-02-20] VITALS (26 sets, daily range): BP systolic 122–178; BP diastolic 61–109; PULSE 76–108; RESP 9–25; TEMP 36.6; O2SAT 93–100; BMI 28.5
[2025-02-20] MEDS: fentaNYL 100 MCG/2 ML INJ IV ×3 (15:43→22:27)
[2025-02-20] MEDS: SODIUM CHLORIDE 0.9% 1,000 ML 1000 ML IV ×2 (15:44→18:37)
[2025-02-20] MEDS: ONDANSETRON 4 MG/2 ML INJ IV ×2 (15:44→20:10)
[2025-02-20 15:48] LABS: Add Manual Diff / Slide Review NO; Basophils Absolute Auto 0 /uL (0-100); Basophils Percent Auto 0.5 % (0-2); Eosinophils Absolute Auto 0 /uL (0-450); Hemoglobin 13.6 g/dL (12.0-16.0); Lymphocytes Absolute Auto 800 /uL (1100-4500); Lymphocytes Percent Auto 10.3 % (25-40); Mean Corpuscular HGB Conc 33.9 % (30-36); Mean Corpuscular Hemoglobin 33.5 PG (26-34); Mean Corpuscular Volume 99.1 fL (80-100); Monocytes Absolute Auto 600 /uL (0-900); Monocytes Percent Auto 6.9 % (3-14); Neutrophils Absolute Auto 6700 /uL (1500-7000); Neutrophils Percent Auto 82.3 % (50-75); Platelet Count 293 X10^3/uL (150-400); Red Blood Cell Count 4.04 X10^6/uL (4.0-5.2); Red Cell Distribution Width 15.8 % (11.6-14.8); White Blood Cell Count 8.2 X10^3/uL (4.5-11.0)
[2025-02-20 16:02] LABS: Lactate (Lactic Acid) 3.7 mmol/L (0.7-2.1)
[2025-02-20 16:03] LABS: Alanine Aminotransferase 121 IU/L (<35); Albumin 3.5 g/dL (3.5-5.0); Albumin Globulin Ratio 0.9 (1.0-2.8); Alkaline Phosphatase 1087 U/L (38-126); Aspartate Aminotransferase 354 IU/L (14-36); BUN Creatinine Ratio 24.6 (6-22); Bilirubin Total 8.3 mg/dL (0.2-1.3); Blood Urea Nitrogen 16 mg/dL (7-17); Calcium 8.8 mg/dL (8.4-10.2); Carbon Dioxide 24 mmol/L (22-32); Chloride 92 mmol/L (98-107); Estimated Glomerular Filt Rate > 60 mL/min (>60); Globulin 3.8 g/dL (1.7-4.1); Glucose 250 mg/dL (70-99); HEMOLYSIS < 15 (0-50); Lipase 429 U/L (23-300); Magnesium 1.6 mg/dL (1.6-2.3); Potassium 3.6 mmol/L (3.4-5.1); Sodium 129 mmol/L (137-145); Total Protein 7.3 g/dL (6.3-8.2)
[2025-02-20 17:15] LABS: Reflexed Lactate in 2 Hours Y
--- NOTE | 2025-02-20 18:34 | ED_ITS ---
HPI - General Adult <Romana Douglas MD - Last Filed: 02/21/25 08:28> General Chief complaint: Abdominal Pain Stated complaint: Acute pancreatitis, Time Seen by Provider: 02/20/25 14:52 Source: patient Mode of arrival: Wheelchair History of Present Illness HPI narrative: 69-year-old woman with hospitalization at [facility] on 01/23/2025 with a mass in the head of the pancreas and necrotizing pancreatitis. 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 She did have an ERCP on January 14 that showed altered biliary anatomy with new insertion of common bile duct seen that was nondilated but a 1.5 x 1 point cm mass could be seen encasing the portal vein and was sampled with a 22 gauge needle, findings showed diffusely necrotic tissue suggestive of acute pancreatitis and no evidence for neoplasm. Common bile duct was difficult to cannulate due to previously altered physiology. Cholangiogram showed a nondilated ducts with good flow. Discharge February 04, admission 529 reviewed. Recommended that she stop her Rybelsus, necrotizing pancreatitis, hypertension, macrocytic anemia, leukopenia folic acid deficiency, recurrent falls and chronic dizziness, type 2 diabetes, mild hyponatremia Additional chronic medical issues include non-Hodgkin's lymphoma post radiation, MGUS, hypertension, sleep apnea, nonalcoholic steatohepatitis, type 2 diabetes, previous biliary stenting Patient presents to the emergency room today after being seen in follow up by her primary care physician who noticed increasing jaundice in the setting of increasing pain and vomiting. Low-grade fevers have been noted Related Data Home Medications ?Medication ?Instructions ?Recorded ?Confirmed cholecalciferol (vitamin D3) 10 10 mcg PO DAILY 02/20/25 mcg (400 unit) capsule lansoprazole 15 mg capsule,delayed 15 mg PO DAILY 03/2802/20/25 release estradiol 0.01% (0.1 mg/gram) 1 appful vaginal DAILY 0 11/21/24 02/20/25 vaginal cream clobetasol 0.05 % topical cream 1 applic topical BEDTI ME 02/05/25 02/20/25 folic acid 1 mg tablet 1 mg PO DAILY 02/05/2502/20 glipizide 5 mg tablet 2.5 mg PO DAILY 02/05/25 Previous Rx's ?Medication ?Instructions ?Recorded valacyclovir 1 gram tablet 1,000 mg PO DAILY PRN Prn h erpes 02/09/24 (Valtrex) breakout #30 tabs venlafaxine 150 mg 150 mg PO DAILY Depression # 90 caps 07/22/24 capsule,extended release 24 hr Glucose meter and test strips #1 ea 02/06/25 buprenorphine 15 mcg/hour weekly 1 patch transdermal Q 7D #4 ea 02/06/25 transdermal patch ondansetron 8 mg disintegrating 8 mg PO Q8H PRN nausea and 02/10/25 tablet vomiting #30 tabs Allergies Allergy/AdvReac Type Severity Reaction Status Date / Time Sulfa (Sulfonamide Allergy Unknown Verified 02/20/25 14:16 Antibiotics) (SULFA (SULFONAMIDE ANTIBIOTICS)) semaglutide (From Rybelsus) AdvReac Severe necrotizing Verified 02/20/25 14:16 pancreatitis Review of Systems <Romana Douglas MD - Last Filed: 02/21/25 08:28> Review of Systems Narrative: Pertinent positive and negative findings as per HPI Patient History <Romana Douglas MD - Last Filed: 02/21/25 08:28> Medical History Abnormal LFTs Cervical spine disease (~2018) Chicken pox (~1959) Chronic abdominal pain Chronic polyneuropathy Depression, recurrent (~2008) Disease of spine (~2018) DM type 2 with diabetic dyslipidemia Essential hypertension Fractures (~2009) History of lymphoma (~2008) HSV-2 (herpes simplex virus 2) infection (~1979) Kidney stones Measles (~1961) Menopausal syndrome MGUS (monoclonal gammopathy of unknown significance) Mixed hyperlipidemia Mumps (~1961) GARCIA (nonalcoholic steatohepatitis) Necrotizing pancreatitis Non-Hodgkin lymphoma, unspecified, unspecified site Obesity (BMI 30.0-34.9) Rosacea (~1998) Rubella (~1962) Skin cancer, basal cell (~1989) Sleep apnea (~2009) SVT (supraventricular tachycardia) Surgical History Anesthesia Bile duct disease (~2011) H/O lumbosacral spine surgery (~2018) History of arthroscopic knee surgery (~2007) History of back surgery (~2018) History of bladder suspension procedure (~2009) History of section (~1983) History of cholecystectomy (~1983) History of foot surgery (~2011) History of total hysterectomy with bilateral salpingo-oophorectomy (BSO) (~1999) Family History Father Cancer Hypertension Stroke Mother Cancer Grandfather History of heart disease Grandmother Cancer Grandfather Stroke Social History marital status: details: grown children, retired health care administration Smoking Status: Never smoker Smoking Status: Never smoker Exam <Romana Douglas MD - Last Filed: 02/21/25 08:28> Initial Vital Signs Initial Vital Signs: Vital Signs Temperature 97.9 F 02/20/25 14:45 Pulse Rate 108 H 02/20/25 14:45 Respiratory Rate 20 02/20/25 14:45 Blood Pressure 122/61 02/20/25 14:45 Pulse Oximetry 98 02/20/25 14:45 Oxygen Delivery Method Room Air 02/20/25 14:45 General: Appears acutely ill, in pain, dehydrated, alert and able to cooperate completely HEENT: mucous membranes, normal sclera with reactive pupils, Respiratory: Lungs are clear to auscultation, no wheezing no rales no rhonchi. Full and symmetrical air movement Cardiac: Regular rate and rhythm no murmurs no bruits Abdomen: Diffuse tenderness in upper quadrants, mild guarding no rebound Skin: Pale, dry, no rashes Neurologic: Grossly neurologically intact with no obvious asymmetries or abnormalities Extremities: No trauma, well perfused Psych: Cooperative, appropriate insight and affect <Juan Mei MD - Last Filed: 02/21/25 03:25> Initial Vital Signs Initial Vital Signs: Vital Signs Temperature 97.9 F 02/20/25 14:45 Pulse Rate 108 H 02/20/25 14:45 Respiratory Rate 20 02/20/25 14:45 Blood Pressure 122/61 02/20/25 14:45 Pulse Oximetry 98 02/20/25 14:45 Oxygen Delivery Method Room Air 02/20/25 14:45 Course <Romana Douglas MD - Last Filed: 02/21/25 08:28> Orders Ordered: Discontinued Medications Fentanyl (Fentanyl 100 Mcg/2 Ml Inj) 100 mcg IV NOW ONE Stop: 02/20/25 15:07 Last Admin: 02/20/25 15:43 Dose: 100 mcg Documented By: SARAH Fentanyl (Fentanyl 100 Mcg/2 Ml Inj) 100 mcg IV Q2H PRN PRN Reason: Pain, Severe (7-10) Last Admin: 02/21/25 00:22 Dose: 100 mcg Documented By: Admin: 02/20/25 22:27 Dose: 100 mcg Documented By: Admin: 02/20/25 20:10 Dose: 100 mcg Documented By: SARAH Sodium Chloride (Normal Saline 0.9%) 1,000 mls @ 1,000 mls/hr IV BOLUS ONE Stop: 02/20/25 16:05 Last Infusion: 02/20/25 17:14 Dose: Infused Documented By: Admin: 02/20/25 15:44 Dose: 1,000 mls/hr Documented By: SARAH Sodium Chloride (Normal Saline 0.9%) 500 mls @ 1,000 mls/hr IV BOLUS ONE Stop: 02/20/25 18:50 Last Admin: 02/20/25 18:26 Dose: Not Given Documented By: SARAH Sodium Chloride (Normal Saline 0.9%) 1,000 mls @ 1,000 mls/hr IV BOLUS ONE Stop: 02/20/25 19:23 Last Infusion: 02/20/25 19:16 Dose: Infused Documented By: Admin: 02/20/25 18:37 Dose: 1,000 mls/hr Documented By: ANGIE Ceftriaxone Sodium 1,000 mg/ (Sodium Chloride) 100 mls @ 200 mls/hr IV NOW ONE Stop: 02/20/25 19:34 Piperacillin Sod/Tazobactam (Sod 4.5 gm/ Sodium Chloride) 100 mls @ 200 mls/hr IV NOW ONE Stop: 02/20/25 19:44 Last Infusion: 02/20/25 20:42 Dose: Infused Documented By: Admin: 02/20/25 19:49 Dose: 200 mls/hr Documented By: SARAH Ondansetron HCl (Ondansetron 4 Mg/2 Ml Inj) 4 mg IV NOW ONE Stop: 02/20/25 15:07 Last Admin: 02/20/25 15:44 Dose: 4 mg Documented By: SARAH Ondansetron HCl (Ondansetron 4 Mg/2 Ml Inj) 4 mg IV Q4HR PRN PRN Reason: Nausea And Vomiting Last Admin: 02/21/25 00:21 Dose: 4 mg Documented By: Admin: 02/20/25 20:10 Dose: 4 mg Documented By: SARAH Vital Signs Vital signs: Vital Signs - 8 hr 02/20/25 19:30 02/20/25 19:54 02/20/25 19:54 Pulse Rate 85 82 Respiratory Rate Blood Pressure 171/76 H Pulse Oximetry 99 98 Oxygen Delivery Method 02/20/25 20:00 02/20/25 20:00 02/20/25 20:30 Pulse Rate 81 78 Respiratory Rate Blood Pressure 156/70 H Pulse Oximetry 98 97 Oxygen Delivery Method 02/20/25 20:31 02/20/25 20:31 02/20/25 21:00 Pulse Rate 81 78 Respiratory Rate Blood Pressure 172/74 H Pulse Oximetry 96 96 Oxygen Delivery Method 02/20/25 21:01 02/20/25 21:01 02/20/25 21:30 Pulse Rate 78 79 Respiratory Rate Blood Pressure 165/70 H Pulse Oximetry 96 97 Oxygen Delivery Method 02/20/25 21:31 02/20/25 21:31 02/20/25 22:00 Pulse Rate 76 78 Respiratory Rate Blood Pressure 172/70 H Pulse Oximetry 98 98 Oxygen Delivery Method Room Air 02/20/25 22:00 02/20/25 22:30 02/20/25 22:30 Pulse Rate 80 Respiratory Rate Blood Pressure 178/109 H 151/76 H Pulse Oximetry 98 Oxygen Delivery Method 02/20/25 23:00 02/20/25 23:01 02/20/25 23:01 Pulse Rate 83 85 Respiratory Rate Blood Pressure 146/65 H Pulse Oximetry 94 96 Oxygen Delivery Method 02/20/25 23:30 02/20/25 23:30 02/21/25 00:00 Pulse Rate 80 80 Respiratory Rate 17 19 Blood Pressure 162/91 H Pulse Oximetry 93 93 Oxygen Delivery Method 02/21/25 00:00 Pulse Rate Respiratory Rate Blood Pressure 181/77 H Pulse Oximetry Oxygen Delivery Method <Juan Mei MD - Last Filed: 02/21/25 03:25> Orders Ordered: Discontinued Medications Fentanyl (Fentanyl 100 Mcg/2 Ml Inj) 100 mcg IV NOW ONE Stop: 02/20/25 15:07 Last Admin: 02/20/25 15:43 Dose: 100 mcg Documented By: SARAH Fentanyl (Fentanyl 100 Mcg/2 Ml Inj) 100 mcg IV Q2H PRN PRN Reason: Pain, Severe (7-10) Last Admin: 02/21/25 00:22 Dose: 100 mcg Documented By: Admin: 02/20/25 22:27 Dose: 100 mcg Documented By: Admin: 02/20/25 20:10 Dose: 100 mcg Documented By: SARAH Sodium Chloride (Normal Saline 0.9%) 1,000 mls @ 1,000 mls/hr IV BOLUS ONE Stop: 02/20/25 16:05 Last Infusion: 02/20/25 17:14 Dose: Infused Documented By: Admin: 02/20/25 15:44 Dose: 1,000 mls/hr Documented By: SARAH Sodium Chloride (Normal Saline 0.9%) 500 mls @ 1,000 mls/hr IV BOLUS ONE Stop: 02/20/25 18:50 Last Admin: 02/20/25 18:26 Dose: Not Given Documented By: SARAH Sodium Chloride (Normal Saline 0.9%) 1,000 mls @ 1,000 mls/hr IV BOLUS ONE Stop: 02/20/25 19:23 Last Infusion: 02/20/25 19:16 Dose: Infused Documented By: Admin: 02/20/25 18:37 Dose: 1,000 mls/hr Documented By: ANGIE Ceftriaxone Sodium 1,000 mg/ (Sodium Chloride) 100 mls @ 200 mls/hr IV NOW ONE Stop: 02/20/25 19:34 Piperacillin Sod/Tazobactam (Sod 4.5 gm/ Sodium Chloride) 100 mls @ 200 mls/hr IV NOW ONE Stop: 02/20/25 19:44 Last Infusion: 02/20/25 20:42 Dose: Infused Documented By: Admin: 02/20/25 19:49 Dose: 200 mls/hr Documented By: SARAH Ondansetron HCl (Ondansetron 4 Mg/2 Ml Inj) 4 mg IV NOW ONE Stop: 02/20/25 15:07 Last Admin: 02/20/25 15:44 Dose: 4 mg Documented By: SARAH Ondansetron HCl (Ondansetron 4 Mg/2 Ml Inj) 4 mg IV Q4HR PRN PRN Reason: Nausea And Vomiting Last Admin: 02/21/25 00:21 Dose: 4 mg Documented By: Admin: 02/20/25 20:10 Dose: 4 mg Documented By: SARAH Vital Signs Vital signs: Vital Signs - 8 hr 02/20/25 19:30 02/20/25 19:54 02/20/25 19:54 Pulse Rate 85 82 Respiratory Rate Blood Pressure 171/76 H Pulse Oximetry 99 98 Oxygen Delivery Method 02/20/25 20:00 02/20/25 20:00 02/20/25 20:30 Pulse Rate 81 78 Respiratory Rate Blood Pressure 156/70 H Pulse Oximetry 98 97 Oxygen Delivery Method 02/20/25 20:31 02/20/25 20:31 02/20/25 21:00 Pulse Rate 81 78 Respiratory Rate Blood Pressure 172/74 H Pulse Oximetry 96 96 Oxygen Delivery Method 02/20/25 21:01 02/20/25 21:01 02/20/25 21:30 Pulse Rate 78 79 Respiratory Rate Blood Pressure 165/70 H Pulse Oximetry 96 97 Oxygen Delivery Method 02/20/25 21:31 02/20/25 21:31 02/20/25 22:00 Pulse Rate 76 78 Respiratory Rate Blood Pressure 172/70 H Pulse Oximetry 98 98 Oxygen Delivery Method Room Air 02/20/25 22:00 02/20/25 22:30 02/20/25 22:30 Pulse Rate 80 Respiratory Rate Blood Pressure 178/109 H 151/76 H Pulse Oximetry 98 Oxygen Delivery Method 02/20/25 23:00 02/20/25 23:01 02/20/25 23:01 Pulse Rate 83 85 Respiratory Rate Blood Pressure 146/65 H Pulse Oximetry 94 96 Oxygen Delivery Method 02/20/25 23:30 02/20/25 23:30 02/21/25 00:00 Pulse Rate 80 80 Respiratory Rate 17 19 Blood Pressure 162/91 H Pulse Oximetry 93 93 Oxygen Delivery Method 02/21/25 00:00 Pulse Rate Respiratory Rate Blood Pressure 181/77 H Pulse Oximetry Oxygen Delivery Method Medical Decision Making <Romana Douglas MD - Last Filed: 02/21/25 08:28> Lab Data 02/20/25 15:27 02/20/25 15:27 Labs: Lab Results 02/20/25 02/20/25 Range/Units 15:27 19:42 WBC 8.2 (4.5-11.0) X10^3/uL RBC 4.04 (4.0-5.2) X10^6/uL Hgb 13.6 (12.0-16.0) g/dL Hct 40.0 (36-46) % MCV 99.1 (80-100) fL MCH 33.5 (26-34) PG MCHC 33.9 (30-36) % RDW 15.8 H (11.6-14.8) % Plt Count 293 (150-400) X10^3/uL Neut % (Auto) 82.3 H (50-75) % Lymph % (Auto) 10.3 L (25-40) % [place] % (Auto) 6.9 (3-14) % Eos % (Auto) 0.0 L (2-4) % Baso % (Auto) 0.5 (0-2) % Neut # (Auto) 6700 (8284-6351) /uL Lymph # (Auto) 800 L (4573-8191) /uL [place] # (Auto) 600 (0-900) /uL Eos # (Auto) 0 (0-450) /uL Baso # (Auto) 0 (0-100) /uL Sodium 129 L (137-145) mmol/L Potassium 3.6 (3.4-5.1) mmol/L Chloride 92 L (98-107) mmol/L Carbon Dioxide 24 (22-32) mmol/L BUN 16 (7-17) mg/dL Creatinine 0.65 (0.52-1.04) mg/dL Estimated GFR > 60 (>60) mL/min BUN/Creatinine Ratio 24.6 H (6-22) Glucose 250 H (70-99) mg/dL Lactate 3.7 H 1.6 (0.7-2.1) mmol/L Calcium 8.8 (8.4-10.2) mg/dL Magnesium 1.6 (1.6-2.3) mg/dL Total Bilirubin 8.3 H (0.2-1.3) mg/dL AST 354 H (14-36) IU/L ALT 121 H (<35) IU/L Alkaline Phosphatase 1087 H (38-126) U/L Total Protein 7.3 (6.3-8.2) g/dL Albumin 3.5 (3.5-5.0) g/dL Globulin 3.8 (1.7-4.1) g/dL Albumin/Globulin Ratio 0.9 L (1.0-2.8) Lipase 429 H (23-300) U/L MDM Narrative Medical decision making narrative: CC: Jaundice, increasing abdominal pain Complicating co-morbidities: Recent necrotizing pancreatitis question pancreatic cancer with elevated biomarkers but biopsy with ERCP done in early January did not show neoplastic process. Prior lymphoma, MUGA , hypertension, type 2 diabetes Data collected from: patient Medical records reviewed: [facility] hospitalization with ERCP and subsequent outpatient gastroenterology follow up notes are all reviewed and summarized in the [facility] Internal medicine notes from today preceding her ER visit are reviewed Differential considered: Recurrent pancreatitis, obstructed common bile duct, come instructed pancreatic that, pancreatic mass Exam documented above, pertinent findings include: Patient appears uncomfortable but not acutely toxic, abdomen is significantly tender without rebound Lab Test results independently reviewed as above. Pertinent findings: CBC is reassuring with white count at 8.2, hemoglobin at 13.6, platelets normal at 293 Chemistries show a sodium at 1:29 a.m. which essentially corrects with a glucose at 2:50 a.m.. Renal function is appropriate. Lactic acid is elevated at 3 point Total bili is 8.3, AST is 354, ALT at 121, alk-phos at 1087. Comparison from 8 days ago shows bilirubin at 4.7, AST at 209., ALT 67, alk-phos at 872 Imaging studies independently reviewed: Consultations: Treatments: Initial L of fluid likely had the majority of it infiltrate into her arm. 2 L with a confirmed intravenous line infused. She currently has a buprenorphine patch her pain control so 100 mcg of fentanyl was used, Zofran 4 mg Re-evaluations: Discussion: 69-year-old woman with recent necrotizing pancreatitis, labs are all increasing again. White blood cell count is not elevated she does not have a fever, we will hold onantibiotics for now Pt introduced to Dr Mei who will assume care <Juan Mei MD - Last Filed: 02/21/25 03:25> Lab Data Labs: Lab Results 02/20/25 02/20/25 Range/Units 15:27 19:42 WBC 8.2 (4.5-11.0) X10^3/uL RBC 4.04 (4.0-5.2) X10^6/uL Hgb 13.6 (12.0-16.0) g/dL Hct 40.0 (36-46) % MCV 99.1 (80-100) fL MCH 33.5 (26-34) PG MCHC 33.9 (30-36) % RDW 15.8 H (11.6-14.8) % Plt Count 293 (150-400) X10^3/uL Neut % (Auto) 82.3 H (50-75) % Lymph % (Auto) 10.3 L (25-40) % [place] % (Auto) 6.9 (3-14) % Eos % (Auto) 0.0 L (2-4) % Baso % (Auto) 0.5 (0-2) % Neut # (Auto) 6700 (2240-2937) /uL Lymph # (Auto) 800 L (8527-5076) /uL [place] # (Auto) 600 (0-900) /uL Eos # (Auto) 0 (0-450) /uL Baso # (Auto) 0 (0-100) /uL Sodium 129 L (137-145) mmol/L Potassium 3.6 (3.4-5.1) mmol/L Chloride 92 L (98-107) mmol/L Carbon Dioxide 24 (22-32) mmol/L BUN 16 (7-17) mg/dL Creatinine 0.65 (0.52-1.04) mg/dL Estimated GFR > 60 (>60) mL/min BUN/Creatinine Ratio 24.6 H (6-22) Glucose 250 H (70-99) mg/dL Lactate 3.7 H 1.6 (0.7-2.1) mmol/L Calcium 8.8 (8.4-10.2) mg/dL Magnesium 1.6 (1.6-2.3) mg/dL Total Bilirubin 8.3 H (0.2-1.3) mg/dL AST 354 H (14-36) IU/L ALT 121 H (<35) IU/L Alkaline Phosphatase 1087 H (38-126) U/L Total Protein 7.3 (6.3-8.2) g/dL Albumin 3.5 (3.5-5.0) g/dL Globulin 3.8 (1.7-4.1) g/dL Albumin/Globulin Ratio 0.9 L (1.0-2.8) Lipase 429 H (23-300) U/L Imaging Data CT scan - abdomen/pelvis: Radiologist's Impression: [address] [address] [address] Scan Report Signed Patient: Dee Dee Rizo MR#: [id number] : 1955 Acct:[id number] Age/Sex: 69 / F Date of Service: 02/20/25 Loc: ED Accession Number: [id number] Procedure: CT abdomen pelvis w con Ordering Provider: Romana Douglas MD PROCEDURE: CT ABDOMEN PELVIS W CON INDICATIONS: pancreatitis TECHNIQUE: After the administration of intravenous contrast, axial sections acquired from the lung bases to the pubic symphysis. Coronal and sagittal reformats were performed. For radiation dose reduction, the following was used: automated exposure control, adjustment of mA and/or kV according to patient size. COMPARISON: [facility], CT, CT ABDOMEN PANCREATIC PROTOCOL, 01/30/2025, 21:26. FINDINGS: Image quality: Diagnostic. Lower Chest: Small left pleural effusion. ABDOMEN: Liver: Hepatic steatosis. Nodular contour. Patent portal vein. Gallbladder: Absent. Biliary ducts: No biliary dilation. Pancreas: Again seen are findings hemorrhagic pancreatitis, with decreased enhancement of the pancreatic tail. There is suspected mass in the pancreatic head with upstream dilation. This is not changed from 01/30/2025.. Spleen: Size is within normal limits. Adrenal Glands: No adrenal nodules. Kidneys and Ureters: No hydronephrosis. No solid mass. No complex renal cystic lesion which requires follow up. Stomach and Bowel: Normal colonic caliber, without significant wall thickening. Peritoneum: Small volume ascites. Increased size of the acute necrotic collections. These include: -14.0 x 9.2 by 11.5 centimeter in the gastrohepatic space (series 2, image 32). - 11.0 x 7.5 by 8.9 centimeter along the lesser curvature of the stomach, causing mass effect (series 2, image 65). -4.5 x 6.7 by 7.3 centimeter at the pancreatic tail (series 2, image 61). Ventral Wall: No significant ventral hernia. Abdominal Nodes: No retroperitoneal or mesenteric adenopathy by size criteria. Vessels: Aorta and inferior vena cava are normal in size. Stable splenic vein thrombosis. Narrowing of the SMV and portal vein. PELVIS: Pelvic Organs: Unremarkable. Bladder: No bladder wall thickening, accounting for underdistention. Pelvic Nodes: No enlarged lymph nodes. Miscellaneous: No inguinal hernias are seen. Bones: No aggressive osseous abnormality. Grade 1 anterolisthesis of L4 on L5, status post surgical fusion. Suspected loosening of the interventricular screws given surrounding lucency. IMPRESSION: Persistent findings of necrotizing pancreatitis, with increased size and organization of the acute necrotic collections, as described above. Of note, there is significant mass effect along the lesser curvature of the stomach. Consider GI consultation for drainage. Stable pancreatic head mass with narrowing of the portal vein and SMV. Findings remain concerning for pancreatic adenocarcinoma. Cirrhosis. Stable thrombosis of the splenic vein. Grade 1 anterolisthesis of L4 on L5, status post surgical fusion. Suspected loosening of the intraventricular screws given surrounding lucency. Dictated by: Michael Mills M.D. on 02/20/2025 at 19:58 Approved by: Michael Mills M.D. on 02/20/2025 at 20:09 MDM Narrative Medical decision making narrative: CC: Jaundice, increasing abdominal pain Complicating co-morbidities: Recent necrotizing pancreatitis question pancreatic cancer with elevated biomarkers but biopsy with ERCP done in early January did not show neoplastic process. Prior lymphoma, MUGA , hypertension, type 2 diabetes Data collected from: patient Medical records reviewed: [facility] hospitalization with ERCP and subsequent outpatient gastroenterology follow up notes are all reviewed and summarized in the [facility] Internal medicine notes from today preceding her ER visit are reviewed Differential considered: Recurrent pancreatitis, obstructed common bile duct, come instructed pancreatic that, pancreatic mass Exam documented above, pertinent findings include: Patient appears uncomfortable but not acutely toxic, abdomen is significantly tender without rebound Lab Test results independently reviewed as above. Pertinent findings: CBC is reassuring with white count at 8.2, hemoglobin at 13.6, platelets normal at 293 Chemistries show a sodium at 1:29 a.m. which essentially corrects with a glucose at 2:50 a.m.. Renal function is appropriate. Lactic acid is elevated at 3 point Total bili is 8.3, AST is 354, ALT at 121, alk-phos at 1087. Comparison from 8 days ago shows bilirubin at 4.7, AST at 209., ALT 67, alk-phos at 872 Imaging studies independently reviewed: Consultations: Treatments: Initial L of fluid likely had the majority of it infiltrate into her arm. 2 L with a confirmed intravenous line infused. She currently has a buprenorphine patch her pain control so 100 mcg of fentanyl was used, Zofran 4 mg Re-evaluations: Discussion: 69-year-old woman with recent necrotizing pancreatitis, labs are all increasing again. White blood cell count is not elevated she does not have a fever, we will hold on antibiotics for now Pt introduced to Dr Mei who will assume care 1899, [place]. Signout from Dr Douglas. 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 Interval labs today show worsening liver functions. T bili prior was 4.7, now 8.3. AST prior 209, now 354. ALT was 67, now 128. Alkaline phosphatase 172, now 1087. White blood cell count 8000 not elevated. Lactate elevated, possible dehydration, IV fluids given, we will repeat lactate. No antibiotics given so far. CT abdomen and pelvis has been ordered. Patient has buprenorphine patch in place, given IV fentanyl 100 mcg bolus, seems to have improvement in symptoms. CT to be performed. Anticipate possible admission/transfer back to [facility]. Assumed care. CT abdomen shows large abdominal phlegmonous appearing mass central. Elevated lactate noted. Blood culture sent. IV Zosyn. Await Radiology report. CT abdomen and pelvis. IMPRESSION: Persistent findings of necrotizing pancreatitis, with increased size and organization of the acute necrotic collections, as described above. Of note, there is significant mass effect along the lesser curvature of the stomach. Consider GI consultation for drainage.Stable pancreatic head mass with narrowing of the portal vein and SMV. Findings remain concerning for pancreatic adenocarcinoma. Cirrhosis. Stable thrombosis of the splenic vein. Grade 1 anterolisthesis of L4 on L5, status post surgical fusion. Suspected loosening of the intraventricular screws given surrounding lucency. See radiology report. Keep NPO, pain seems to be reasonably controlled with IV fentanyl boluses. Hemodynamically stable at present. IV Zosyn added above. Transfer back to [facility], patient agrees. 2019, phone call courtesy call to son Alvaro who is a trauma surgeon in [facility], updated on CT findings and need for transfer. We are told that [facility] is saturated, we will look for alternate facilities. Patient aware and agrees. [id number], case discussed with Luis M Hookerjamie Munoz. Willing to consult, await call back from hospitalist service. 2199, second call to [facility], discussed with Sole Stainer, no beds available [facility] until at least tomorrow afternoon. 2219, case discussed with [facility] hospitalist Dr. Swanson, who accepts patient for transfer to telemetry bed. Critical Care Time <Juan Mei MD - Last Filed: 02/21/25 03:25> Critical Care Time Critical Care Time: Yes Total Critical Care Time: 35 Attestation: The high probability of a clinically significant, sudden or life threatening deterioration of the [cardiopulmonary, gastrointestinal] system(s) required my full and direct attention, intervention and personal management. The aggregate critical care time was [35] minutes. This time is in addition to time spent performing reported procedures but includes the following: [x] Data Review and interpretation [x] Patient assessment and monitoring of vital signs [x] Documentation [x] Medication orders and management Discharge Plan Departure Patient Disposition: [facility] Clinical Impression: Necrotizing pancreatitis Prescriptions: No Action valacyclovir [Valtrex] 1 gram tablet 1,000 mg PO DAILY PRN (Reason: Prn herpes breakout) Qty: 30 5RF venlafaxine 150 mg capsule,extended release 24hr 150 mg PO DAILY Qty: 90 3RF ondansetron 8 mg tablet,disintegrating 8 mg PO Q8H PRN (Reason: nausea and vomiting) Qty: 30 5RF buprenorphine 15 mcg/hour patch weekly 1 patch transdermal Q7D Qty: 4 0RF (DME) Glucose meter and test strips See Rx Instructions .Route .MEDSUPPLY Qty: 1 0RF Rx Instructions: #1 glucose meter #100 test strips - check once daily clobetasol 0.05 % cream 1 applic topical BEDTIME folic acid 1 mg tablet 1 mg PO DAILY glipizide 5 mg tablet 2.5 mg PO DAILY Patient Comments: Prescribed by hospitalist at [facility] cholecalciferol (vitamin D3) 10 mcg (400 unit) capsule 10 mcg PO DAILY lansoprazole 15 mg capsule,delayed release(DR/EC) 15 mg PO DAILY estradiol 0.01 % (0.1 mg/gram) cream 1 appful vaginal DAILY Rx Instructions: for 14 days Referrals: Dalton Mahmood MD [Primary Care Provider, Internal Medicine]
--- NOTE | 2025-02-20 19:01 | DI.CT.S_ITS ---
PROCEDURE: CT ABDOMEN PELVIS W CON INDICATIONS: pancreatitis TECHNIQUE: After the administration of intravenous contrast, axial sections acquired from the lung bases to the pubic symphysis. Coronal and sagittal reformats were performed. For radiation dose reduction, the following was used: automated exposure control, adjustment of mA and/or kV according to patient size. COMPARISON: [facility], CT, CT ABDOMEN PANCREATIC PROTOCOL, 01/30/2025, 21:26. FINDINGS: Image quality: Diagnostic. Lower Chest: Small left pleural effusion. ABDOMEN: Liver: Hepatic steatosis. Nodular contour. Patent portal vein. Gallbladder: Absent. Biliary ducts: No biliary dilation. Pancreas: Again seen are findings hemorrhagic pancreatitis, with decreased enhancement of the pancreatic tail. There is suspected mass in the pancreatic head with upstream dilation. This is not changed from 01/30/2025.. Spleen: Size is within normal limits. Adrenal Glands: No adrenal nodules. Kidneys and Ureters: No hydronephrosis. No solid mass. No complex renal cystic lesion which requires follow up. Stomach and Bowel: Normal colonic caliber, without significant wall thickening. Peritoneum: Small volume ascites. Increased size of the acute necrotic collections. These include: -14.0 x 9.2 by 11.5 centimeter in the gastrohepatic space (series 2, image 32). - 11.0 x 7.5 by 8.9 centimeter along the lesser curvature of the stomach, causing mass effect (series 2, image 65). -4.5 x 6.7 by 7.3 centimeter at the pancreatic tail (series 2, image 61). Ventral Wall: No significant ventral hernia. Abdominal Nodes: No retroperitoneal or mesenteric adenopathy by size criteria. Vessels: Aorta and inferior vena cava are normal in size. Stable splenic vein thrombosis. Narrowing of the SMV and portal vein. PELVIS: Pelvic Organs: Unremarkable. Bladder: No bladder wall thickening, accounting for underdistention. Pelvic Nodes: No enlarged lymph nodes. Miscellaneous: No inguinal hernias are seen. Bones: No aggressive osseous abnormality. Grade 1 anterolisthesis of L4 on L5, status post surgical fusion. Suspected loosening of the interventricular screws given surrounding lucency. IMPRESSION: Persistent findings of necrotizing pancreatitis, with increased size and organization of the acute necrotic collections, as described above. Of note, there is significant mass effect along the lesser curvature of the stomach. Consider GI consultation for drainage. Stable pancreatic head mass with narrowing of the portal vein and SMV. Findings remain concerning for pancreatic adenocarcinoma. Cirrhosis. Stable thrombosis of the splenic vein. Grade 1 anterolisthesis of L4 on L5, status post surgical fusion. Suspected loosening of the intraventricular screws given surrounding lucency. Dictated by: Michael Mills M.D. on 02/20/2025 at 19:58 Approved by: Michael Mills M.D. on 02/20/2025 at 20:09
[2025-02-20] MEDS: PIPERACILLIN/TAZO 4.5 GM in SODIUM CHLORIDE 0.9% 100 ML IV (19:49)
[2025-02-20 20:07] LABS: Lactate (Lactic Acid) 1.6 mmol/L (0.7-2.1)
--- NOTE | 2025-02-20 22:12 | PC.NURSE ---
Patient trialed off bipap. Her 02 sat dropped to 86% on RA. She is mouth breathing so she was placed back on oxymask 2L. O2 sat elevated to 95%.
[2025-02-21] VITALS: BP 181/77; PULSE 80; RESP 19; O2SAT 93
[2025-02-21] MEDS: ONDANSETRON 4 MG/2 ML INJ IV (00:21)
[2025-02-21] MEDS: fentaNYL 100 MCG/2 ML INJ IV (00:22)
== END 2025-02-21 00:28 | disposition short-term general hospital (02) ==
PROVIDERS: Emergency Medicine; Emergency Provider Emergency Medicine; PCP Internal Medicine
DX: K85.91 Acute pancreatitis with uninfected necrosis, unspecified (principal)
CPT/HCPCS: 36415; 74177; 80053; 83605; 83690; 83735; 85025; 87040; 96361; 96365; 96375; 96376; 99284; 99291; J2405; J2543; J3010; Q9967